=== PATIENT | female | born 1970 | race Caucasian/White ===

== ENCOUNTER 2016-06-13 13:53 | Inpatient (IN) | payer BC, OTHER ==
[~2016-06-13] VITALS: Ht 162.6 cm; Wt 63.5 kg
[2016-06-13 19:50] VITALS: BP 122/81
[2016-06-13 20:17] LABS: *URINE HCG, QUAL NEGATIVE (NEGATIVE)
[2016-06-13 20:34] LABS: *AMPHETAMINE, URINE NEGATIVE (NEGATIVE); *BARBITURATE, URINE NEGATIVE (NEGATIVE); *CANNABINOID, URINE NEGATIVE (NEGATIVE); *COCCAINE, URINE NEGATIVE (NEGATIVE); *OPIATE, URINE NEGATIVE (NEGATIVE); *PHENCYCLIDINE SCREEN,URINE NEGATIVE (NEGATIVE)
[2016-06-13] MEDS ORDERED: DICYCLOMINE HCL 20 MG TABLET PO PRN (20:45)
[2016-06-13] MEDS ORDERED: MAG HYDROX/AL HYDROX/SIMETH 30 ML LIQUID UDC PO PRN (20:45)
[2016-06-13] MEDS ORDERED: BUPRENORPHINE HCL 2 MG TAB.SUBL SL PRN (20:45)
[2016-06-13] MEDS ORDERED: MAGNESIUM HYDROXIDE 30 ML LIQUID UDC PO PRN (20:45)
[2016-06-13] MEDS ORDERED: DIAZEPAM 10 MG TABLET PO PRN ×2 (20:45)
[2016-06-13] MEDS ORDERED: PROMETHAZINE HCL 25 MG/1 ML VIAL IM PRN (20:45)
[2016-06-13] MEDS ORDERED: METHOCARBAMOL 750 MG TABLET PO PRN (20:45)
[2016-06-13] MEDS ORDERED: MIRALAX 17 GM POWD.PACK PO PRN (20:45)
[2016-06-13] MEDS ORDERED: LOPERAMIDE HCL 2 MG CAPSULE PO PRN ×2 (20:45)
[2016-06-13] MEDS ORDERED: LORAZEPAM 2 MG/1 ML VIAL IM PRN (20:45)
[2016-06-13] MEDS ORDERED: IBUPROFEN 400 MG TABLET PO PRN (20:45)
[2016-06-13] MEDS ORDERED: DIAZEPAM 5 MG TABLET PO PRN (20:45)
[2016-06-13 21:23] LABS: BASOPHILS # (AUTO) 0.1 K/uL (0.0-0.2); BASOPHILS % (AUTO) 1.4 % (0.0-2.0); EOSINOPHILS # (AUTO) 0.2 K/uL (0.0-0.7); EOSINOPHILS % (AUTO) 2.3 % (0.0-7.0); HEMOGLOBIN 10.3 g/dL (12.0-16.0); LYMPHOCYTES # (AUTO) 3.8 K/uL (0.8-4.8); MEAN CORPUSCULAR HGB CONC 32 g/dL (32.0-37.0); MEAN CORPUSCULAR VOLUME 71.6 fL (81.0-99.0); MONOCYTES # (AUTO) 0.4 K/uL (0.1-1.30); MONOCYTES % (AUTO) 4.7 % (0.0-11.0); NEUTROPHILS % (AUTO) 39.6 % (38.5-71.5); PLATELET COUNT (AUTO) 346 K/uL (150-450); RED BLOOD CELL COUNT(AUTO) 4.47 MIL/uL (4.20-5.40); RED CELL DISTRIBUTION WIDTH 23.6 % (11.5-14.5); WHITE BLOOD COUNT (AUTO) 7.5 K/uL (4.0-11.2)
[2016-06-13 21:46] LABS: ALBUMIN 3.7 g/dL (3.4-5.0); BILIRUBIN,TOTAL 0.2 mg/dL (0.2-1.0); CALCIUM 8.2 mg/dL (8.5-10.1); CREATININE 0.9 mg/dL (0.6-1.3); MAGNESIUM 1.9 mg/dL (1.8-2.4); POTASSIUM 3.9 mmol/L (3.5-5.1); TOTAL PROTEIN, SERUM 7.4 g/dL (6.4-8.2)
[2016-06-13 21:53] LABS: THYROID STIMULATING HORMONE 1.432 mIU/mL (0.358-3.740)
[2016-06-13 21:56] LABS: HIV-1 p24 ANTIGEN NON REACTIVE (NONREACTIVE); HIV-1/2 ANTIBODY NON REACTIVE (NONREACTIVE)
[2016-06-13 22:22] LABS: ANISOCYTOSIS 2+; BAND % (MANUAL) 1 % (0-10); EOSINOPHILS % (MANUAL) 1 % (0-8); HYPOCHROMASIA 1+; LYMPHOCYTES % (MANUAL) 53 % (20-40); MONOCYTES % (MANUAL) 5 % (2-10); NEUTROPHILS % (MANUAL) 40 % (42-75); PLATELET ESTIMATE ADEQUATE
[2016-06-13 22:45] VITALS: BP 125/85
[2016-06-13] MEDS: ONDANSETRON ODT 4 MG TAB.RAPDIS SL PRN (22:46)
[2016-06-14] VITALS (7 sets, daily range): BP systolic 98–115; BP diastolic 68–82
[2016-06-14] MEDS: CLONIDINE HCL 0.1 MG TABLET PO PRN (00:57)
[2016-06-14] MEDS ORDERED: [UNRECOGNIZED DRUG - CODE] BC (02:23)
[2016-06-14] MEDS: HYDROXYZINE PAMOATE 25 MG CAPSULE PO PRN (03:56)
[2016-06-14] MEDS ORDERED: TUBERCULIN,PURIF.PROT.DERIV. 5 TU/0.1 ML TEST ID ONE (09:00)
[2016-06-14] MEDS: MULTIVITAMINS,THERAPEUTIC TABLET PO SCH (09:12)
[2016-06-14] MEDS ORDERED: ONDANSETRON 4 MG/2 ML VIAL IV PRN (09:30)
[2016-06-14] MEDS: PAROXETINE HCL 20 MG TABLET PO SCH (09:37)
[2016-06-14] MEDS: ACETAMINOPHEN 325 MG TABLET PO PRN (09:37)
[2016-06-14] MEDS: ONDANSETRON ODT 4 MG TAB.RAPDIS SL PRN (09:38)
[2016-06-14] MEDS ORDERED: LORAZEPAM 1 MG TABLET PO PRN ×2 (10:00)
[2016-06-14] MEDS: LORAZEPAM 1 MG TABLET PO SCH ×3 (12:04→21:53)
[2016-06-14] MEDS ORDERED: GABAPENTIN 300 MG CAPSULE PO SCH (15:00)
[2016-06-14] MEDS ORDERED: BUPRENORPHINE HCL 2 MG TAB.SUBL SL SCH (17:00)
[2016-06-14] MEDS ORDERED: PATIENT MAY USE OWN MED- MD OK PO SCH (17:00)
[2016-06-14] MEDS ORDERED: LIDOCAINE 5% PATCH TD SCH (19:00)
[2016-06-14] MEDS: BUPRENORPHINE HCL 2 MG TAB.SUBL SL SCH (19:53)
[2016-06-14] MEDS: GABAPENTIN 300 MG CAPSULE PO SCH (21:54)
[2016-06-14] MEDS: diphenhydrAMINE 50 MG CAPSULE PO PRN (21:54)
[2016-06-15] VITALS: BP 119/88
[2016-06-15 04:00] VITALS: BP 100/73
[2016-06-15 06:06] LABS: HCV AB 0.1 s/co ratio (0.0-0.9); HEPATITIS B CORE AB, IgM Negative (Negative); HEPATITIS B SURFACE AG Negative (Negative)
[2016-06-15 08:00] VITALS: BP 116/88
[2016-06-15] MEDS: BUPRENORPHINE HCL 2 MG TAB.SUBL SL SCH (08:50)
[2016-06-15] MEDS: PAROXETINE HCL 20 MG TABLET PO SCH (08:50)
[2016-06-15] MEDS: MULTIVITAMINS,THERAPEUTIC TABLET PO SCH (08:50)
[2016-06-15] MEDS: GABAPENTIN 300 MG CAPSULE PO SCH ×3 (08:50→21:43)
[2016-06-15] MEDS: LORAZEPAM 1 MG TABLET PO SCH ×3 (08:50→21:44)
[2016-06-15 12:00] VITALS: BP 110/67
[2016-06-15] MEDS: ACETAMINOPHEN 325 MG TABLET PO PRN (14:56)
[2016-06-15 16:00] VITALS: BP 113/79
[2016-06-15] MEDS ORDERED: IBUPROFEN 400 MG TABLET PO PRN (17:45)
[2016-06-15] MEDS: LIDOCAINE 5% PATCH TD SCH (18:23)
[2016-06-15 20:00] VITALS: BP 126/83
[2016-06-15] MEDS: KETOROLAC TROMETHAMINE 30 MG INJ IM PRN (21:44)
[2016-06-16] VITALS: BP 106/77
[2016-06-16 04:00] VITALS: BP 99/72
[2016-06-16 08:00] VITALS: BP 120/68
[2016-06-16] MEDS: GABAPENTIN 300 MG CAPSULE PO SCH ×3 (09:24→21:12)
[2016-06-16] MEDS: LORAZEPAM 1 MG TABLET PO SCH ×4 (09:24→21:12)
[2016-06-16] MEDS: PAROXETINE HCL 20 MG TABLET PO SCH (09:24)
[2016-06-16] MEDS: BUPRENORPHINE HCL 2 MG TAB.SUBL SL SCH (09:25)
[2016-06-16] MEDS: MULTIVITAMINS,THERAPEUTIC TABLET PO SCH (09:25)
[2016-06-16] MEDS: KETOROLAC TROMETHAMINE 30 MG INJ IM PRN ×3 (09:31→22:27)
[2016-06-16 13:00] VITALS: BP 130/90
[2016-06-16 16:46] VITALS: BP 130/80
[2016-06-16 20:00] VITALS: BP 134/85
[2016-06-16] MEDS: FAMOTIDINE 20 MG TABLET PO SCH (21:12)
[2016-06-16] MEDS: LIDOCAINE 5% PATCH TD SCH (21:13)
[2016-06-16] MEDS ORDERED: KETOROLAC TROMETHAMINE 30 MG INJ ONE (22:03)
[2016-06-17] VITALS: BP 113/77
[2016-06-17] MEDS: PAROXETINE HCL 20 MG TABLET PO SCH (08:44)
[2016-06-17] MEDS: FAMOTIDINE 20 MG TABLET PO SCH ×2 (08:44→21:20)
[2016-06-17] MEDS: GABAPENTIN 300 MG CAPSULE PO SCH ×3 (08:44→21:19)
[2016-06-17] MEDS: MULTIVITAMINS,THERAPEUTIC TABLET PO SCH (08:45)
[2016-06-17] MEDS: LORAZEPAM 1 MG TABLET PO SCH ×3 (08:45→21:19)
[2016-06-17] MEDS: BUPRENORPHINE HCL 2 MG TAB.SUBL SL SCH (08:45)
[2016-06-17] MEDS: KETOROLAC TROMETHAMINE 30 MG INJ IM PRN ×2 (08:50→17:04)
[2016-06-17 10:10] VITALS: BP 113/77
[2016-06-17 13:32] VITALS: BP 113/80
[2016-06-17 18:17] VITALS: BP 113/80
[2016-06-17 20:00] VITALS: BP 117/83
[2016-06-17] MEDS: LIDOCAINE 5% PATCH TD SCH (21:20)
[2016-06-18 08:00] VITALS: BP 139/89
[2016-06-18] MEDS: MULTIVITAMINS,THERAPEUTIC TABLET PO SCH (08:30)
[2016-06-18] MEDS: BUPRENORPHINE HCL 2 MG TAB.SUBL SL SCH (08:31)
[2016-06-18] MEDS: LORAZEPAM 1 MG TABLET PO SCH ×2 (08:31→20:57)
[2016-06-18] MEDS: GABAPENTIN 300 MG CAPSULE PO SCH ×3 (08:31→20:57)
[2016-06-18] MEDS: FAMOTIDINE 20 MG TABLET PO SCH ×2 (08:31→20:57)
[2016-06-18] MEDS: PAROXETINE HCL 20 MG TABLET PO SCH (08:31)
[2016-06-18] MEDS: CLONIDINE HCL 0.1 MG TABLET PO PRN (09:31)
[2016-06-18 12:00] VITALS: BP 120/84
[2016-06-18] MEDS: HYDROXYZINE PAMOATE 25 MG CAPSULE PO PRN ×2 (12:56→22:37)
[2016-06-18 16:00] VITALS: BP 111/75
[2016-06-18 20:00] VITALS: BP 115/87
[2016-06-18] MEDS: LIDOCAINE 5% PATCH TD SCH (20:56)
[2016-06-18] MEDS: KETOROLAC TROMETHAMINE 30 MG INJ IM PRN (22:37)
[2016-06-19 08:00] VITALS: BP 105/63
[2016-06-19] MEDS: GABAPENTIN 300 MG CAPSULE PO SCH ×3 (09:08→20:13)
[2016-06-19] MEDS: MULTIVITAMINS,THERAPEUTIC TABLET PO SCH (09:08)
[2016-06-19] MEDS: PAROXETINE HCL 20 MG TABLET PO SCH (09:09)
[2016-06-19] MEDS: FAMOTIDINE 20 MG TABLET PO SCH ×2 (09:09→20:13)
[2016-06-19] MEDS: BUPRENORPHINE HCL 2 MG TAB.SUBL SL SCH (09:09)
[2016-06-19] MEDS: HYDROXYZINE PAMOATE 25 MG CAPSULE PO PRN (11:49)
[2016-06-19] MEDS: KETOROLAC TROMETHAMINE 30 MG INJ IM PRN (11:51)
[2016-06-19 12:00] VITALS: BP 127/93
[2016-06-19] MEDS: BACLOFEN 20 MG TABLET PO SCH ×2 (14:59→20:12)
[2016-06-19] MEDS ORDERED: PANTOPRAZOLE SODIUM 40 MG TABLET.DR PO ONE (15:00)
[2016-06-19] MEDS: NAPROXEN 250 MG TABLET PO SCH ×2 (15:34→20:12)
[2016-06-19 16:00] VITALS: BP 108/84
[2016-06-19 18:31] LABS: *AMPHETAMINE, URINE NEGATIVE (NEGATIVE); *BARBITURATE, URINE NEGATIVE (NEGATIVE); *CANNABINOID, URINE NEGATIVE (NEGATIVE); *COCCAINE, URINE NEGATIVE (NEGATIVE); *OPIATE, URINE NEGATIVE (NEGATIVE); *PHENCYCLIDINE SCREEN,URINE NEGATIVE (NEGATIVE)
[2016-06-19 20:00] VITALS: BP 129/79
[2016-06-19] MEDS: LIDOCAINE 5% PATCH TD SCH (20:12)
[2016-06-19] MEDS: diphenhydrAMINE 50 MG CAPSULE PO PRN (22:46)
[2016-06-20] VITALS: BP 114/76
[2016-06-20 04:00] VITALS: BP 127/86
[2016-06-20] MEDS ORDERED: PANTOPRAZOLE SODIUM 40 MG TABLET.DR PO SCH (07:00)
[2016-06-20] MEDS ORDERED: Baclofen PO (08:51)
[2016-06-20] MEDS ORDERED: Gabapentin PO ×2 (08:51)
[2016-06-20] MEDS ORDERED: DICY20TA28 PO (08:51)
[2016-06-20] MEDS ORDERED: HYDR-3895 PO (08:51)
[2016-06-20] MEDS ORDERED: PANT40TA2 PO (08:51)
[2016-06-20] MEDS ORDERED: LIDO30AD10 TD (08:51)
[2016-06-20] MEDS ORDERED: Acetaminophen PO (08:51)
[2016-06-20] MEDS ORDERED: Naproxen PO (08:51)
[2016-06-20] MEDS ORDERED: Paroxetine Hcl PO (08:51)
[2016-06-20 08:58] VITALS: BP 158/82
[2016-06-20] MEDS: BUPRENORPHINE HCL 2 MG TAB.SUBL SL SCH (09:00)
[2016-06-20] MEDS ORDERED: GABAPENTIN 300 MG CAPSULE PO SCH ×2 (09:00→21:00)
[2016-06-20] MEDS: NAPROXEN 250 MG TABLET PO SCH (09:04)
[2016-06-20] MEDS: BACLOFEN 20 MG TABLET PO SCH (09:04)
[2016-06-20] MEDS: PAROXETINE HCL 20 MG TABLET PO SCH (09:04)
[2016-06-20] MEDS: MULTIVITAMINS,THERAPEUTIC TABLET PO SCH (09:04)
[2016-06-20 15:11] LABS: *BENZODIAZEPINES Negative (Cutoff=300)
== END 2016-06-20 10:00 | disposition home or self-care (01) | DRG 895 ==
LOC: SRC 18:53
PROVIDERS: ADMIT Internal Medicine; ATTEND Internal Medicine
PROC: HZ2ZZZZ Detoxification Services for Substance Abuse Treatment (ICD-10-PCS; principal; 2016-06-13)
PROC: HZ31ZZZ Individual Counseling for Substance Abuse Treatment, Behavioral (ICD-10-PCS; 2016-06-14)
PROC: HZ41ZZZ Group Counseling for Substance Abuse Treatment, Behavioral (ICD-10-PCS; 2016-06-16)
DX: F10.230 Alcohol dependence with withdrawal, uncomplicated (principal); F11.288 Opioid dependence with other opioid-induced disorder; K70.10 Alcoholic hepatitis without ascites; Y90.7 Blood alcohol level of 200-239 mg/100 ml; T14.90 Injury, unspecified; G89.4 Chronic pain syndrome; V89.2XXS Person injured in unspecified motor-vehicle accident, traffic, sequela; M43.26 Fusion of spine, lumbar region; D50.9 Iron deficiency anemia, unspecified; F17.210 Nicotine dependence, cigarettes, uncomplicated; G57.92 Unspecified mononeuropathy of left lower limb; F41.1 Generalized anxiety disorder; Z98.1 Arthrodesis status; T81.9XXD Unspecified complication of procedure, subsequent encounter; Z79.899 Other long term (current) drug therapy; Z79.891 Long term (current) use of opiate analgesic
CPT/HCPCS: 36415; 70030-TC; 71010; 80307; 80346; 83690; 83735; 84443; 84703; 85025; 86580; 86592; 86705; 86803; 87340; 87806; A4663; G6040-TC; J1885; Q0162; Q0163

== ENCOUNTER 2016-07-04 14:53 | Inpatient (IN) | payer BC, OTHER ==
[~2016-07-04] VITALS: Ht 162.6 cm; Wt 65.8 kg
[~2016-07-04 14:53] MED LIST: Acetaminophen PO; Baclofen PO; DICY20TA28 PO; Gabapentin PO; HYDR-3895 PO; LIDO30AD10 TD; Naproxen PO; PANT40TA2 PO; Paroxetine Hcl PO; [UNRECOGNIZED DRUG - CODE] BC
--- NOTE | 2016-07-06 19:00 | NUR ---
pre-assessment note: assessed patient in intake pt is very unsteady alert x2 appears flushed and intoxicated, placed patient in wheelchair and 1:1. pt with no know allergies. pt is alert and oriented. pt states she takes norco 10/325 mg/ twice a day and subutex unknown dose at this time. pt states she also drinks 2 1/5th of a bottle. pt has hx of spinal surgery of L 1-5 (fusion). pts V/S 126/83, 93, 98.6 and 98%. no pain at this time. pt was in [facility] ER for 5 hrs
--- NOTE | 2016-07-06 19:30 | NUR ---
ADMISSION NOTE: Patient is a 42 y.o female admitted at [facility] at approximately 1855pm of 06/06/16 for medically supervised withdrawal from ETOH & Opiates. Patient came in a wheelchair d/t unsteady gait. Patient was placed on 1:1 observation for safety. Body search done and skin check performed in Room 303, no contraband found. Skin noted to be intact. Pt is 5'4" tall and weighs 145 lbs in a standing scale. Pt is cooperative during assessment. Patient is oriented to floor unit and room. Patient follows a regular diet at home with no known food and drug allergies. Pt wishes to be full Code. Patient is alert & oriented to name, place & situation. Speech is slurred but audible. Patient appears anxious but cooperative during interview. No shortness of breath noted. Respiration even & unlabored. Abdomen soft & non-distended. Bowel sounds active in all four quadrants. Nausea noted with no episode of vomiting. Patient complains of 8/10 body aches, mild headache, sweating , chills & anxiety. Bilateral hand tremors noted. COWS 11 CIWA 9 noted. Vitals upon admission: B/P 126/83/81, MN 93, Temp 98.6, RR 16, O2Sat 98%. Patient noted with past medical history of Anxiety, Spinal fusion(2012), Gastric Bypass( 20 yrs ago), Kidney Failure (2015), UTI, & Iron deficiency anemia. No history of suicide in the past. Pt currently denies SI/HI. Pt was able to provide urine sample for drug screen upon admission and is voiding clear yellow urine with no problems. Substance use: 1. ETOH- Pt has been drinking since she was 26 years old. Pt drinks 2 bottles of 750ml of Vodka daily for the past 17 days. Last drink 2 bottles of 750ml of vodka on the day of admission 07/06/16 at 1 pm. 2. [place]- Pt started taking prescribed [place] 10/325 TID(30mg/daily) for 4 years for her chronic back pain. Pt has been taking 30mg daily straight for 17 days. Last use was 30mg 2 days ago 07/04/16. 3. Belbuca- Pt has been taking it as prescribed for Opiate maintenance for 2 months. Pt is taking 300mcg BID( 600mcg daily). Last use was 600mcg 2 days ago 07/04/16. Treatment History: -[facility] for 7 days (June 13-) -[facility] in [place] for 7 days 05/14/2016 -Pt cannot recall then name of the other treatment facilities. Per pt, she has been to over 10 facilities. Patient was recently hospitalized here at [facility] last month from June 13- and was discharged to [facility] where she was not allowed to take here prescribed medications and got frustrated. Patientleft the facility immediately and relapsed. Patient denies being hospitalized in the last 30 days. Patient reports his longest period of sobriety was for 3.5 years from 2008 to 2012. Patient reports symptoms when he does not use as anxiety, shaking, nausea & headache, body aches, sweating, chills, & restless legs. Patient smokes 20 cigarettes daily. Patient refused pneumonia vaccines, educated patient risk & benefits but still refused. Patient does not have a PCP. Urine drug screen came back positive for Opiates and Benzodiazepines. Alcohol level is 0.29. Fall & Seizure precautions are in place. All needs attended & met. Safety precautions are in place. Bed locked in lowest position. Both side rails padded & up. Call light within pt's reach. Will continue to monitor. Dr. Watson seen pt. Awaiting for admission order. Will continue to monitor patient.
[2016-07-06 20:02] LABS: *AMPHETAMINE, URINE NEGATIVE (NEGATIVE); *BARBITURATE, URINE NEGATIVE (NEGATIVE); *CANNABINOID, URINE NEGATIVE (NEGATIVE); *COCCAINE, URINE NEGATIVE (NEGATIVE); *OPIATE, URINE POSITIVE (NEGATIVE); *PHENCYCLIDINE SCREEN,URINE NEGATIVE (NEGATIVE)
[2016-07-06 20:08] LABS: *URINE HCG, QUAL NEGATIVE (NEGATIVE)
[2016-07-06] MEDS ORDERED: THIAMINE HCL 200 MG/2 ML VIAL IM ONE (20:30)
[2016-07-06] MEDS ORDERED: LORAZEPAM 2 MG/1 ML VIAL IM PRN (20:30)
[2016-07-06] MEDS ORDERED: HYDROXYZINE PAMOATE 25 MG CAPSULE PO PRN (20:30)
[2016-07-06] MEDS ORDERED: MAG HYDROX/AL HYDROX/SIMETH 30 ML LIQUID UDC PO PRN (20:30)
[2016-07-06] MEDS ORDERED: MIRALAX 17 GM POWD.PACK PO PRN (20:30)
[2016-07-06] MEDS ORDERED: LORAZEPAM 1 MG TABLET PO PRN (20:30)
[2016-07-06] MEDS ORDERED: diphenhydrAMINE 50 MG CAPSULE PO PRN (20:30)
[2016-07-06] MEDS ORDERED: NAPROXEN 500 MG TABLET PO PRN (20:30)
[2016-07-06] MEDS ORDERED: IBUPROFEN 600 MG TABLET PO PRN (20:30)
[2016-07-06] MEDS ORDERED: LOPERAMIDE HCL 2 MG CAPSULE PO PRN ×2 (20:30)
[2016-07-06] MEDS ORDERED: DICYCLOMINE HCL 20 MG TABLET PO PRN (20:30)
[2016-07-06] MEDS ORDERED: GABAPENTIN 300 MG CAPSULE PO SCH (21:00)
[2016-07-06 21:09] LABS: BASOPHILS # (AUTO) 0.1 K/uL (0.0-8.0); EOSINOPHILS # (AUTO) 0.1 K/uL (0.0-0.7); EOSINOPHILS % (AUTO) 0.5 % (0.0-7.0); HEMATOCRIT 37.2 % (37-47); HEMOGLOBIN 11.6 G/DL (12.0-16.0); LYMPHOCYTES # (AUTO) 3.2 K/uL (20.0-40.0); LYMPHOCYTES % (AUTO) 26.8 % (20.5-51.5); MEAN CORPUSCULAR HEMOGLOBIN 22.1 UUG (27.0-31.0); MEAN CORPUSCULAR HGB CONC 31 g/dL (32.0-37.0); MEAN CORPUSCULAR VOLUME 70.9 FL (81.0-99.0); MONOCYTES # (AUTO) 0.2 K/uL (2.0-10.0); NEUTROPHILS # (AUTO) 8.2 K/uL (1.8-8.9); NEUTROPHILS % (AUTO) 69.7 % (38.5-71.5); PLATELET COUNT (AUTO) 303 K/UL (150-450); RED BLOOD CELL COUNT(AUTO) 5.24 MIL/UL (4.2-5.4); RED CELL DISTRIBUTION WIDTH 21.8 % (11.5-14.5); WHITE BLOOD COUNT (AUTO) 11.8 K/UL (4.0-11.2)
[2016-07-06 21:24] LABS: HYPOCHROMASIA 2+
[2016-07-06 21:25] LABS: ANISOCYTOSIS 3+; OVALOCYTES FEW
[2016-07-06 21:29] LABS: ALBUMIN 4.5 g/dL (3.4-5.0); BILIRUBIN,TOTAL 0.2 mg/dL (0.2-1.0); CALCIUM 8.4 mg/dL (8.5-10.1); CREATININE 0.8 mg/dL (0.6-1.3); MAGNESIUM 1.8 mg/dL (1.8-2.4); POTASSIUM 3.5 mmol/L (3.5-5.1); THYROID STIMULATING HORMONE 0.247 mIU/mL (0.358-3.740); TOTAL PROTEIN, SERUM 8.5 g/dL (6.4-8.2)
[2016-07-06 21:31] LABS: HIV-1 p24 ANTIGEN NON REACTIVE (NONREACTIVE); HIV-1/2 ANTIBODY NON REACTIVE (NONREACTIVE)
[2016-07-06] MEDS ORDERED: IV NS 1000 ML 1,000 ML IV ONE (21:45)
[2016-07-06] MEDS: ONDANSETRON ODT 4 MG TAB.RAPDIS SL PRN (21:55)
[2016-07-06] MEDS: BUPRENORPHINE HCL 2 MG TAB.SUBL SL SCH (21:55)
--- NOTE | 2016-07-06 21:55 | NUR ---
PRN Administration Patient complains of nausea, insomnia & anxiety. Patient with no episode of vomiting noted. Patient noted to be restless and anxious in bed. PRN Zofran, benadryl & Vistaril administered as ordered. Will continue to monitor.
--- NOTE | 2016-07-06 22:55 | NUR ---
PRN Reasessment Patient still awake at this time. Pt verbalized relief from nausea & improved anxiety noted. Safety precautions are in place. On 1:1 for precaution. Will continue to monitor.
[2016-07-06] MEDS: LORAZEPAM 1 MG TABLET PO PRN (23:31)
--- NOTE | 2016-07-06 23:31 | NUR ---
PRN Administration Patient noted with complains of sweating, anxiety & mild headache. Pateint appears anxious and restless. Bilateral hand tremors noted. CIWA 9 noted. Vitals WNL. PRN Ativan 1mg administered as ordered. Will reassess in 1 hour for effectiveness of medication. Safety precautions are in place. Will continue to monitor.
--- NOTE | 2016-07-06 23:34 | NUR ---
IV insertion Pt had peripheral IV 22G inserted on Left AC. Insertion successful with good blood return. Flushes easily with no complaints of discomfort from patient. Tegaderm applied. Pt in stable condition.
[2016-07-07] VITALS: BP 113/81
--- NOTE | 2016-07-07 00:31 | NUR ---
PRN Reassessment Patient asleep in bed and appears comfortable. No s/s of distress noted. No facial grimacing noted. On 1:1 for safety. Safety precautions are in place. Will continue to monitor patient.
[2016-07-07 06:06] VITALS: BP 128/75
[2016-07-07] MEDS: ACETAMINOPHEN 325 MG TABLET PO PRN ×2 (06:17→20:52)
[2016-07-07] MEDS: ONDANSETRON ODT 4 MG TAB.RAPDIS SL PRN ×3 (06:17→20:53)
[2016-07-07] MEDS: PANTOPRAZOLE SODIUM 40 MG TABLET.DR PO SCH (06:17)
--- NOTE | 2016-07-07 06:17 | NUR ---
PRN Administration Patient complains of shaking, mild headache, anxiety and nausea. No episode of vomiting noted. Bilateral hand tremors noted. CIWA 9 noted. Vitals WNL. PRN Ativan, Zofran & Tylenol administered as oredered. safety precautions are in place. Will continue to monitor patient.
[2016-07-07] MEDS: LORAZEPAM 1 MG TABLET PO PRN (06:18)
--- NOTE | 2016-07-07 07:17 | NUR ---
PRN Reassessment Pateint asleep in bed at this time and appears comfortable. No shortness of breath noted. Respiration even & unlabored. safety precautions are in place. Will continue to monitor.
--- NOTE | 2016-07-07 07:20 | NUR ---
Start of shift note Pt was admitted for ETOH and opiate dependence. Pt has a PMHx of spinal fusion surgery, gastric bypass, anxiety, kidney failure, UTI and blood transfusions. Pt is going to start on a 5 day ativan taper and a modified subutex taper at 0900. Pt has IVF infusing to Left AC, pt is tolerating well. Pt states that she would like some pain medication with her morning medication for her body aches. Will administer them with her 0900 meds. All other needs addressed at this time. Will continue to monitor pt. Bed is locked in a low position, side rails up x 2.
--- NOTE | 2016-07-07 07:30 | NUR ---
End of Shift Note: Patient is a 45 y/o female admitted last night for Opiate and ETOH dependence. Patient is in stable condition. Vitals remains WNL. Last COWS 9 CIWA 10. Pt was given PRN Zofran x2, benadryl, Vistaril, Ativan 1mg x2, & Tylenol. Pt is having withdrawals but relieved after medications were given. Pt with IV access on left AC with IV fluids running @ 125 cc/hr. Pt was took off on 1:1. Safety precautions are in place. Pt consumed 710ml of fluids. Voided 2x with no bowel movement. All needs attended & met. Safetyu precautions are in place. Will endorse pt to day shift nurse.
[2016-07-07 08:00] VITALS: BP 108/63
--- NOTE | 2016-07-07 08:35 | NUR ---
PRN administration Pt c/o pain of 8/10 in her back and muscle spasms. Administered PRN baclofen and naproxen. Will continue to monitor pt. All other needs addressed at this time.
[2016-07-07] MEDS: THIAMINE HCL 100 MG TABLET PO SCH (08:36)
[2016-07-07] MEDS: BUPRENORPHINE HCL 2 MG TAB.SUBL SL SCH ×2 (08:36→20:53)
[2016-07-07] MEDS: FOLIC ACID 1 MG TABLET PO SCH (08:36)
[2016-07-07] MEDS: BACLOFEN 20 MG TABLET PO PRN ×2 (08:37→16:05)
[2016-07-07] MEDS: LIDOCAINE 5% PATCH TD SCH (08:37)
[2016-07-07] MEDS: LORAZEPAM 1 MG TABLET PO SCH ×4 (08:37→20:52)
[2016-07-07] MEDS: IV NS 1000 ML 1,000 ML IV PRN ×2 (08:38→23:45)
[2016-07-07] MEDS: MULTIVITAMINS,THERAPEUTIC TABLET PO SCH (08:38)
--- NOTE | 2016-07-07 08:45 | NUR ---
MD communication Pt has a CIWA of 19. Notified Dr Christianson, NNO. Will continue to monitor pt and administer PRN medication as necessary. All other needs addressed at this time.
[2016-07-07] MEDS ORDERED: GABAPENTIN 300 MG CAPSULE PO SCH (09:00)
[2016-07-07] MEDS ORDERED: TUBERCULIN,PURIF.PROT.DERIV. 5 TU/0.1 ML TEST ID ONE (09:00)
[2016-07-07 09:29] LABS: ALBUMIN 3.9 g/dL (3.4-5.0); BILIRUBIN,DIRECT 0.1 mg/dL (0.0-0.2); BILIRUBIN,TOTAL 0.5 mg/dL (0.2-1.0); CALCIUM 8.2 mg/dL (8.5-10.1); CREATININE 0.9 mg/dL (0.6-1.3); MAGNESIUM 1.5 mg/dL (1.8-2.4); PHOSPHOROUS 3.6 mg/dL (2.5-4.9); POTASSIUM 3.9 mmol/L (3.5-5.1); TOTAL PROTEIN, SERUM 7.2 g/dL (6.4-8.2)
[2016-07-07 09:35] LABS: BASOPHILS % (AUTO) 0.4 % (0.0-2.0); EOSINOPHILS # (AUTO) 0.2 K/uL (0.0-0.7); EOSINOPHILS % (AUTO) 1.8 % (0.0-7.0); HEMATOCRIT 30.4 % (37-47); HEMOGLOBIN 9.7 G/DL (12.0-16.0); LYMPHOCYTES # (AUTO) 2.9 K/uL (20.0-40.0); LYMPHOCYTES % (AUTO) 30.4 % (20.5-51.5); MEAN CORPUSCULAR HEMOGLOBIN 22.9 UUG (27.0-31.0); MEAN CORPUSCULAR HGB CONC 32 g/dL (32.0-37.0); MEAN CORPUSCULAR VOLUME 71.6 FL (81.0-99.0); MONOCYTES # (AUTO) 0.6 K/uL (2.0-10.0); MONOCYTES % (AUTO) 5.9 % (0.0-11.0); NEUTROPHILS # (AUTO) 5.8 K/uL (1.8-8.9); NEUTROPHILS % (AUTO) 61.5 % (38.5-71.5); PLATELET COUNT (AUTO) 287 K/UL (150-450); RED BLOOD CELL COUNT(AUTO) 4.25 MIL/UL (4.2-5.4); RED CELL DISTRIBUTION WIDTH 21.4 % (11.5-14.5); WHITE BLOOD COUNT (AUTO) 9.5 K/UL (4.0-11.2)
--- NOTE | 2016-07-07 09:35 | NUR ---
Reassessment Pt states that her pain level has decreased to a 5/10, which is comfortable for her. All other needs addressed, pt is attempting to participate in activities and is ambulating around the unit.
[2016-07-07 09:44] LABS: LACTIC ACID 2.2 mmol/L (0.4-2.0)
--- NOTE | 2016-07-07 09:49 | NUR ---
LAB Lactic acid=2.[address] Christianson notified with new order for Lactic acid lab in 4 hours, noted and carried out.
[2016-07-07] MEDS ORDERED: MAGNESIUM OXIDE 400 MG TABLET PO ONE (10:15)
[2016-07-07] MEDS ORDERED: IV NS 1000 ML 1,000 ML IV ONE (10:15)
--- NOTE | 2016-07-07 10:19 | NUR ---
PRN administration Pt has a CIWA of 17, Dr Watson aware, administered PRN ativan 2mg PO per MD order. Will continue to monitor pt.
[2016-07-07 10:23] LABS: FOLIC ACID 20.9 NG/ML (8.6-58.9)
--- NOTE | 2016-07-07 11:19 | NUR ---
Reassessment Pt is comfortably sleeping in her bed. IVF infusing, pt noted to have drank one bottle of water. PO fluids will continued to be encouraged throughout the shift. All needs addressed at this time.
[2016-07-07 12:00] VITALS: BP 130/80
[2016-07-07 12:16] LABS: *BILIRUBIN,URIN NEGATIVE (NEGATIVE); *BLOOD, URINE Trace-lysed (NEGATIVE); *CLARITY,URINE CLEAR (CLEAR); *COLOR,URINE YELLOW (YELLOW); *KETONES,URINE 1+ (NEGATIVE); *PROTEIN,URINE TRACE (NEGATIVE); *UROBILINOGEN,URINE 0.2 E.U./dl (NORMAL); LEUKOCYTE ESTERASE ,URINE NEGATIVE (NEGATIVE); NITRITE, URINE NEGATIVE (NEGATIVE); UGLUCOSE NEGATIVE (NEGATIVE)
[2016-07-07 12:35] LABS: BACTERIA,URINE FEW /HPF (NONE SEEN); RBC,URINE 0-3 /HPF (0-3); WBC,URINE 0-3 /HPF (0-3)
[2016-07-07 12:36] LABS: SQUAMOUS EPITHELIAL CELL,UR FEW /HPF (NONE SEEN)
--- NOTE | 2016-07-07 13:41 | NUR ---
PRN administration Pt c/o nausea, administered PRN zofran. Will continue to monitor pt.
[2016-07-07] MEDS ORDERED: LORAZEPAM 1 MG TABLET PO PRN ×2 (13:45)
[2016-07-07] MEDS: PAROXETINE HCL 20 MG TABLET PO SCH (13:51)
--- NOTE | 2016-07-07 13:51 | NUR ---
Reassessment Pt states that the zofran was effective in reducing her nausea. Pt states that she is comfortable now. Will continue to monitor pt.
[2016-07-07] MEDS: GABAPENTIN 300 MG CAPSULE PO SCH ×2 (15:35→20:54)
[2016-07-07 16:00] VITALS: BP 111/68
--- NOTE | 2016-07-07 16:05 | NUR ---
PRN administration Pt c/o pain 10/12 as generalized body aches and pain in her lower back, administered PRN baclofen per MD order. Will continue to monitor pt.
--- NOTE | 2016-07-07 17:05 | NUR ---
Reassessment Pt states that her pain level has decreased to a 4/10. Pt states that she feels comfortable at this time. Will continue to monitor pt. All other needs addressed at this time.
--- NOTE | 2016-07-07 19:12 | NUR ---
End of shift note. Pt was admitted for ETOH and opiate dependence. Pt has a PMHx of spinal fusion surgery, gastric bypass, anxiety, kidney failure, UTI and blood transfusions. Pt is on a 5 day ativan taper and a modified subutex taper at 0900. Pt is scheduled to have IVF infusing to Left AC, however pt is ambulating around the unit and participating in group outside of unit and unable to have IVF at this time. Next shift to follow up and restart IVF. Pt had a critically high lactic acid level during the shift, which resolved after administration of IVF and PO fluids. Pt required multiple PRN medications throughout the shift to manage her withdrawal s/s and chronic pain. Pt has no further complaints at this time. All needs addressed. Will endorse SBAR to oncoming shift.
--- NOTE | 2016-07-07 19:15 | NUR ---
Start of Shift Note: Patient is a 45 y/o male admitted on 07/06/16 for Opiate and ETOH dependence. Patient reported drinking 1500ml of Vodka daily for 2 weeks, prescribed [place] 30mg daily for 17 days and Belbuca 600mcg daily for 17 days. Patient with medical history of Anxiety, kidney failyre (2016), UTI, Blood transfusion d/t iron deficiency in 2016. Past medical surgery of Spinal fusion (2012), & Gastric Bypass (20 yrs ago). Patient is on a regular diet with no known food and drug allergies. Full Code status. Fall & Seizure precaution noted. Patient is on a 5-day Ativan taper and modified Subutex taper and tolerating well. Patient has 22 gauge peripheral IV access on her Left AC with running NS @ 125 cc/hr patent and flushes easily. No complains of discomfort at this time. Last COWS is 3 CIWA 1 noted. Patient was given PRN Miralax during day shift. Will continue to monitor for bowel movement. Patient is alert & oriented x4. No shortness of breath noted. Respiration even & unlabored. Abdomen soft & non-distended. Nausea noted with no episode of vomiting. Patient complains of sweating , 9/10 body aches & mild headache. Slight bilateral hand tremors noted. Patient denies hallucinations. Safety precautions are in place. Bed locked in lowest position. Both side rails up. Call light within pts reach. Will continue to monitor patient. Addendum: 07/07/16 at 2338 by TATE CANTU RN ERROR in PRN's. Pt was given PRN Baclofen x2, Naproxen, Zofran & Ativan during day shift.
[2016-07-07 20:00] VITALS: BP 117/76
--- NOTE | 2016-07-07 20:53 | NUR ---
PRN Administration Patient complains of mild headache and nausea. No episode of vomiting noted. Non-pharmacological interventions provided but not effective. PRN Tylenol and Zofran administered as ordered. Will continue to monitor
--- NOTE | 2016-07-07 21:53 | NUR ---
PRN Reassessment Patient verbalized relief from headache and improved nausea. Patient lying in bed and appears comfortable. No s/s of distress noted. Will continue to monitor patient.
--- NOTE | 2016-07-07 22:00 | NUR ---
IV insertion Pt's IV was noted to be leaking and pt is complaining of discomfort. IV discontinued. Pressure dressing applied. Reinstered new peripheral IV 22G on left hand. Insertion successful with good blood return. Flushes easily with no complaints of discomfort from patient. Tegaderm applied. Pt in stable condition.
[2016-07-08] VITALS: BP 107/78
[2016-07-08 04:00] VITALS: BP 126/58
--- NOTE | 2016-07-08 04:00 | NUR ---
IV pulled out Pt's IV on left hand accidentally pulled out. Minimal bleeding noted. Pressure dressing applied.
[2016-07-08] MEDS: BACLOFEN 20 MG TABLET PO PRN ×2 (05:25→23:34)
[2016-07-08] MEDS: ONDANSETRON ODT 4 MG TAB.RAPDIS SL PRN ×3 (05:25→21:37)
--- NOTE | 2016-07-08 05:25 | NUR ---
PRN Administration Patient complains of 8/10 body aches and nausea. No episode of vomiting noted. PRN Baclofen and Zofran administered as ordered. Will reassess in 1 hour for effectiveness of medication. Will continue to monitor patient.
--- NOTE | 2016-07-08 06:25 | NUR ---
PRN Reassessment Patient is asleep at this time and appears comfortable. No facial grimacing noted. Patient shows no s/s of distress. Safety precautions are in place. Will continue to monitor.
[2016-07-08] MEDS: PANTOPRAZOLE SODIUM 40 MG TABLET.DR PO SCH (06:40)
--- NOTE | 2016-07-08 07:00 | NUR ---
Start of Shift Endorsement received from nightshift nurse. Pt is a 45 y/o female admitted for alcohol and [place] dependence. PT has been placed on a 5 day Ativan taper. Pt is also on Subutex maintenance. PT is tolerating the taper and moderately withdrawing at this time AEB COWS 9, CIWA 5 at 0530. Pt slept 7 hours. Pt received PRN Zofran, Tylenol and Baclofen. Pt's IV has been discontinued until farther evaluation by Dr. Christianson. VS WNL, Full Code. Pt is in STABLE condition at this time. Remains compliant with medication and diet regimen. All needs have been met, All safety measures in place per hospital policy. Bed in lowest position, side rails up x2, call-light within reach. Will continue to monitor.
--- NOTE | 2016-07-08 07:25 | NUR ---
End of Shift Note: Patient is a 45 y/o male admitted on 07/06/16 for Opiate and ETOH dependence. Patient reported drinking 1500ml of Vodka daily for 2 weeks, prescribed [place] 30mg daily for 17 days and Belbuca 600mcg daily for 17 days. Patient with medical history of Anxiety, kidney failure (2016), UTI, Blood transfusion d/t iron deficiency in 2016. Past medical surgery of Spinal fusion (2012), & Gastric Bypass (20 yrs ago). Patient is on a regular diet with no known food and drug allergies. Full Code status. Fall & Seizure precaution noted. Patient is on a 5-day Ativan taper and modified Subutex taper and tolerating well. Last COWS 9 CIWA 5. Pt was given PRN Tylenol, Zofran 2x, & Baclofen during my shift and was effective. Patients IV got pulled out at the end of the shift. Attempted to reinsert but was unsuccessful. Pt remained stable and vitals remains WNL. Pt is compliant with therapeutic plan. Pt slept for a total of 7 hours. Pt consumed 796ml of fluids. Voided 2x with 1x bowel movement. All needs attended & met. Safety precautions are in place. Will endorse pt to day shift nurse.
[2016-07-08 08:00] VITALS: BP 99/65
[2016-07-08 08:29] LABS: BASOPHILS # (AUTO) 0.1 K/uL (0.0-8.0); BASOPHILS % (AUTO) 0.9 % (0.0-2.0); EOSINOPHILS # (AUTO) 0.3 K/uL (0.0-0.7); EOSINOPHILS % (AUTO) 2.6 % (0.0-7.0); HEMATOCRIT 29.8 % (37-47); HEMOGLOBIN 9.7 G/DL (12.0-16.0); LYMPHOCYTES % (AUTO) 29.8 % (20.5-51.5); MEAN CORPUSCULAR HEMOGLOBIN 22.9 UUG (27.0-31.0); MEAN CORPUSCULAR HGB CONC 33 g/dL (32.0-37.0); MEAN CORPUSCULAR VOLUME 70.2 FL (81.0-99.0); MONOCYTES # (AUTO) 0.7 K/uL (2.0-10.0); MONOCYTES % (AUTO) 6.7 % (0.0-11.0); NEUTROPHILS # (AUTO) 5.9 K/uL (1.8-8.9); PLATELET COUNT (AUTO) 271 K/UL (150-450); RED BLOOD CELL COUNT(AUTO) 4.25 MIL/UL (4.2-5.4); RED CELL DISTRIBUTION WIDTH 21.4 % (11.5-14.5)
[2016-07-08 08:48] LABS: CALCIUM 8.3 mg/dL (8.5-10.1); CREATININE 0.8 mg/dL (0.6-1.3); MAGNESIUM 1.6 mg/dL (1.8-2.4); PHOSPHOROUS 3.5 mg/dL (2.5-4.9); POTASSIUM 4.3 mmol/L (3.5-5.1)
[2016-07-08] MEDS: LORAZEPAM 1 MG TABLET PO SCH ×3 (08:51→20:14)
[2016-07-08] MEDS: GABAPENTIN 300 MG CAPSULE PO SCH ×3 (08:51→20:14)
[2016-07-08] MEDS: THIAMINE HCL 100 MG TABLET PO SCH (08:52)
[2016-07-08] MEDS: FOLIC ACID 1 MG TABLET PO SCH (08:52)
[2016-07-08] MEDS: PAROXETINE HCL 20 MG TABLET PO SCH (08:52)
[2016-07-08] MEDS: BUPRENORPHINE HCL 2 MG TAB.SUBL SL SCH ×2 (08:52→20:15)
[2016-07-08] MEDS: MULTIVITAMINS,THERAPEUTIC TABLET PO SCH (08:54)
[2016-07-08] MEDS: LIDOCAINE 5% PATCH TD SCH (08:54)
[2016-07-08 09:33] LABS: BAND % (MANUAL) 1 % (0-10); BASOPHILS % (MANUAL) 1 % (0-2); EOSINOPHILS % (MANUAL) 2 % (0-8); LYMPHOCYTES % (MANUAL) 36 % (20-40); MONOCYTES % (MANUAL) 8 % (2-10); NEUTROPHILS % (MANUAL) 52 % (42-75)
[2016-07-08 09:43] LABS: ANISOCYTOSIS 3+; HYPOCHROMASIA 2+; OVALOCYTES 1+; PLATELET ESTIMATE ADEQU; TEAR DROP CELLS 1+
[2016-07-08 12:00] VITALS: BP 100/62
[2016-07-08 12:06] LABS: HCV AB <0.1 s/co ratio (0.0-0.9); HEPATITIS B CORE AB, IgM Negative (Negative); HEPATITIS B SURFACE AG Negative (Negative)
--- NOTE | 2016-07-08 12:30 | NUR ---
PRN Medications PRN Bentyl and Clonidine administered for withdrawal symptoms such as cold sweats, chills and stomach cramps. Addendum: 07/08/16 at 1919 by JD WRIGHT RN Zofran was also administered for nausea.
[2016-07-08] MEDS: CLONIDINE HCL 0.1 MG TABLET PO PRN ×2 (12:31→23:35)
--- NOTE | 2016-07-08 13:00 | NUR ---
Medication Re-assessment Medication was effective. Pt reports relieve from cramps and nausea and chills.
[2016-07-08] MEDS ORDERED: MAGNESIUM OXIDE 400 MG TABLET PO ONE (14:45)
[2016-07-08 16:00] VITALS: BP 100/65
--- NOTE | 2016-07-08 19:15 | NUR ---
START OF SHIFT Received 45 year old female patient admitted on 07/06/16 for ETOH, [place] and Belbuca dependency. Pt is full code with NKA. She reports a PMHx of spinal fusion, gastric bypass, anxiety, kidney failure, UTI, blood transfusion x3 d/t iron deficiency anemia. Pt reports using ETOH 1500 mL of vodka daily x2 weeks. Last dose was 1500 mL on 07/06/16. [place] 30 mg for 17 days. Last dose was 30 mg on 07/04/16 and Belbuca 600 mcg daily for 17 days. Last dose was 600 mcg on 07/04/16. Pt receiving 5 day Ativan taper and is receiving Subutex for chronic pain management. Per endorsement, pt received zofran, bentyl, and clonidine. Pt is alert and oriented x4, breathing is even and unlabored. Pt safe with bed locked in lowest position, side rails up x2 and call light within reach. Will continue to monitor.
--- NOTE | 2016-07-08 19:32 | NUR ---
End of Shift Endorsed pt to nightshift nurse. Pt is a 45 y/o female admitted for alcohol and [place] dependence. PT has been placed on a 5 day Ativan taper. Pt is also on Subutex maintenance. PT is tolerating the taper and moderately withdrawing at this time AEB COWS 5, CIWA 4 at 1600. Pt did not participate in groups and activities instead chose to stay in bed and rest. Pt appeared to be sleeping, did not administer 1500 medications due to pt being asleep. Charge nurse also assessed the pt and found her to be sleeping and too sedated for farther medication. Pt received PRN Zofran, clonidine and bentyl for withdrawal symptoms. Pt's IV was discontinued by Dr. Christianson. Intake: 1950ml, Void x4, BM x0. VS WNL, Full Code. Pt is in STABLE condition at this time. Remains compliant with medication and diet regimen. All needs have been met, All safety measures in place per hospital policy. Bed in lowest position, side rails up x2, call-light within reach. Will continue to monitor.
[2016-07-08 20:00] VITALS: BP 122/76
[2016-07-08] MEDS ORDERED: LORAZEPAM 1 MG TABLET PO PRN ×2 (20:30)
--- NOTE | 2016-07-08 21:37 | NUR ---
PRN ZOFRAN Pt complains of nausea with no episode of vomiting. PRN Zofran administered as ordered. Pt safe with bed locked in lowest position, side rails up x2 and call light within reach. Will monitor effectiveness.
--- NOTE | 2016-07-08 22:37 | NUR ---
PRN ZOFRAN REASSESSMENT PRN medication effective. Pt reports decrease in nausea. Respirations 16, breathing is even and unlabored. Pt safe with bed locked in locked in lowest position, side rails up x2 and call light within reach. Will continue to monitor.
--- NOTE | 2016-07-08 23:55 | NUR ---
PRN CLONIDINE/BACLOFEN Pt complains of anxiety and muscle spasms. PRN Clonidine and Baclofen administered as ordered. Breathing even and unlabored, respirations 16. Safety measures in place. Will continue to monitor effectiveness.
[2016-07-09] VITALS: BP 122/85
--- NOTE | 2016-07-09 00:55 | NUR ---
PRN CLONIDINE/BACLOFEN REASSESSMENT PRN medications effective. Pt lying in bed with eyes closed and is noted to be asleep. Breathing is even and unlabored. Pt is safe with bed locked in lowest position, side rails up x2 and call light within reach. Will monitor.
[2016-07-09 04:00] VITALS: BP 117/68
[2016-07-09] MEDS: PANTOPRAZOLE SODIUM 40 MG TABLET.DR PO SCH (06:45)
[2016-07-09] MEDS: ONDANSETRON 4 MG/2 ML VIAL IM PRN (06:59)
--- NOTE | 2016-07-09 06:59 | NUR ---
PRN ZOFRAN IM Pt complains of nausea with no episode of vomiting. Noted with facial grimacing and restlessness. PRN Zofran IM administered as ordered. Breathing even and unlabored, safety measures in place. Will endorse to monitor effectiveness.
--- NOTE | 2016-07-09 07:07 | NUR ---
END OF SHIFT Pt is a 45 year old female patient admitted on 07/06/16 for ETOH, [place] and Belbuca dependency. Pt is full code with NKA. Pt continues on 5 day Ativan taper and Subutex for chronic pain management and tolerating well. Pt complained of withdrawal symptoms of nausea, anxiety and muscle spasms. At 2137 she received PRN Zofran, At 2355 she received PRN Clonidine and Baclofen. At 0659 she received PRN Zofran IM for nausea. Will endorse to monitor effectiveness. Medications were effective. She slept a total of 7 hrs, Intake: 1923 mL Void:x4 BM:0 COWS: 7, CIWA: 5. Pt is alert and oriented x4, breathing is even and unlabored. Pt safe with bed locked in lowest position, side rails up x2 and call light within reach. Endorsed to oncoming shift.
--- NOTE | 2016-07-09 07:31 | NUR ---
START OF SHIFT NOTE: Received report from security shift supervisor nurse. Pt is a 45 year old female patient admitted on 07/06/16 for ETOH, [place] and Belbuca dependency. Pt is on a 5 day Ativan taper. Tolerating well. Pt is alert and oriented X 4. Color good, skin warm and dry. Respirations even and unlabored. Pt resting in bed at this time. Safety precautions observed. Call light within reach. Will continue to monitor.
[2016-07-09 08:00] VITALS: BP 100/60
[2016-07-09] MEDS: GABAPENTIN 300 MG CAPSULE PO SCH ×3 (08:51→21:27)
[2016-07-09] MEDS: BUPRENORPHINE HCL 2 MG TAB.SUBL SL SCH ×2 (08:51→21:28)
[2016-07-09] MEDS: THIAMINE HCL 100 MG TABLET PO SCH (08:51)
[2016-07-09] MEDS: MULTIVITAMINS,THERAPEUTIC TABLET PO SCH (08:51)
[2016-07-09] MEDS: FOLIC ACID 1 MG TABLET PO SCH (08:51)
[2016-07-09] MEDS: LIDOCAINE 5% PATCH TD SCH (08:52)
[2016-07-09] MEDS: LORAZEPAM 1 MG TABLET PO SCH ×4 (08:52→21:27)
[2016-07-09] MEDS: PAROXETINE HCL 20 MG TABLET PO SCH (08:52)
--- NOTE | 2016-07-09 09:00 | NUR ---
VSS CIWA 7 c/o anxiety, fine tremors, sweating and chills. Also c/o lower back pain. Toradol 30mg IM prn administered.
[2016-07-09] MEDS: KETOROLAC TROMETHAMINE 30 MG INJ IM PRN ×2 (09:03→21:54)
[2016-07-09 09:16] LABS: VIT D, 25-HYDROXY 18.6 ng/mL (30.0-100.0)
--- NOTE | 2016-07-09 10:10 | NUR ---
Pt states back pain went from 10/12 to 06/12 after Toradol prn
--- NOTE | 2016-07-09 10:45 | NUR ---
Clonidine 0.1mg po prn given for withdrawal symptoms.
[2016-07-09] MEDS: CLONIDINE HCL 0.1 MG TABLET PO PRN ×2 (10:48→18:24)
--- NOTE | 2016-07-09 13:00 | NUR ---
VSS CIWA 8. Pt c/o anxiety, fine tremors and chills.
[2016-07-09 13:43] VITALS: BP 125/83
[2016-07-09 18:04] VITALS: BP 122/79
--- NOTE | 2016-07-09 18:26 | NUR ---
Pt c/o anxiety. Clonidine 0.1mg po prn administered.
--- NOTE | 2016-07-09 18:43 | NUR ---
END OF SHIFT NOTE: Report given to shift leader nurse. Pt is a 45 year old female patient admitted on 07/06/16 for ETOH, [place] and Belb[place] dependency. Pt is on a 5 day Ativan taper. Tolerating well. Pt is alert and oriented X 4. Color good, skin warm and dry. Respirations even and unlabored. Vital signs have remained stable throughout shift. Toradol 30mg IM prn administered @ 0900. Pt also received Clonidine 0.1mg po prn @ 1045 and 1830. Last CIWA 6 @ 1700. Safety precautions observed. Call light within reach.
--- NOTE | 2016-07-09 19:30 | NUR ---
START OF SHIFT Received report from day shift nurse. Pt is a 45 year old female patient admitted on 07/06/16 for ETOH, [place] and Belbuca dependency. Pt is on a 5 day Ativan taper and Subutex as ordered. Tolerating well. Last CIWA was 6 at 1600. Pt is alert and oriented X 4. Color good, skin warm and dry. Respirations even and unlabored. Pt is in stable condition at this time,resting in bed. Safety precautions observed. Call light within reach. Will continue to monitor.
[2016-07-09 20:00] VITALS: BP 116/76
--- NOTE | 2016-07-09 21:57 | NUR ---
PRN TORADOL IM GIVEN SA ORDERED FOR C/O PAIN ALL OVER THE BODY.PAIN LEVEL IS 8/10.WILL MONITOR FOR EFFECTIVENESS.
--- NOTE | 2016-07-09 23:00 | NUR ---
PRN F/U PT VERBALIZES RELIEF FROM PAIN.PAIN LEVEL IS 0/10 AT THIS TIME.PT IS RESTING IN BED WITH EYES CLOSED.NO S/S OF DISTRESS NOTED,WILL BE MONITORED FOR SAFETY.
[2016-07-10] VITALS: BP 101/73
[2016-07-10 04:00] VITALS: BP 115/74
[2016-07-10] MEDS: CLONIDINE HCL 0.1 MG TABLET PO PRN ×2 (04:54→12:35)
--- NOTE | 2016-07-10 04:59 | NUR ---
PRN CLONIDINE GIVEN ORDERED FOR C/O ANXIETY,R/T WITHDRAWAL SYMPTOMS.WILL MONITOR.
--- NOTE | 2016-07-10 06:00 | NUR ---
PT STATES FEELING BETTER.ANXIETY RELIEVED.
--- NOTE | 2016-07-10 06:40 | NUR ---
END OF SHIFT Received report from day shift nurse. Pt is a 45 year old female patient admitted on 07/06/16 for ETOH, [place] and Belb[place] dependency. Pt is on a 5 day Ativan taper and Subutex as ordered. Tolerating well.Last CIWA was 2 at 0400. Pt is alert and oriented X 4. Color good, skin warm and dry. Respirations even and unlabored. Pt is in stable condition at this time,resting in bed.PRN Toradol IM was given last night for pain with good effect.PRN Clonidine given for anxiety at 0500.Pt slept 7 hrs;fluid intake was 855 mls; voided x 2 . Safety precautions observed. Call light within reach. Will continue to monitor.
[2016-07-10] MEDS: PANTOPRAZOLE SODIUM 40 MG TABLET.DR PO SCH (06:57)
--- NOTE | 2016-07-10 07:30 | NUR ---
START OF SHIFT NOTE: Received report from hourly shift manager nurse. 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 Pt is on a 5 day Ativan taper. Tolerating well. Pt is alert and oriented X 4. Color good, skin warm and dry. Respirations even and unlabored. Pt resting in bed at this time. Safety precautions observed. Call light within reach. Will continue to monitor.
[2016-07-10 08:00] VITALS: BP 115/75
--- NOTE | 2016-07-10 09:00 | NUR ---
VSS CIWA 11 c/o "major anxiety", sweating, chills and fine tremors.
[2016-07-10] MEDS: LORAZEPAM 1 MG TABLET PO SCH ×3 (09:33→20:34)
[2016-07-10] MEDS: BUPRENORPHINE HCL 2 MG TAB.SUBL SL SCH ×2 (09:33→20:35)
[2016-07-10] MEDS: MULTIVITAMINS,THERAPEUTIC TABLET PO SCH (09:33)
[2016-07-10] MEDS: FOLIC ACID 1 MG TABLET PO SCH (09:33)
[2016-07-10] MEDS: THIAMINE HCL 100 MG TABLET PO SCH (09:33)
[2016-07-10] MEDS: GABAPENTIN 300 MG CAPSULE PO SCH ×3 (09:33→20:34)
[2016-07-10] MEDS: PAROXETINE HCL 20 MG TABLET PO SCH (09:33)
[2016-07-10] MEDS: LIDOCAINE 5% PATCH TD SCH (09:37)
[2016-07-10] MEDS: BACLOFEN 20 MG TABLET PO PRN (10:23)
[2016-07-10] MEDS: KETOROLAC TROMETHAMINE 30 MG INJ IM PRN (10:25)
--- NOTE | 2016-07-10 10:30 | NUR ---
Baclofen 20mg po prn and Toradol 30mg IM prn administered for body aches and back pain.
--- NOTE | 2016-07-10 11:30 | NUR ---
Pt states body aches improved after Baclofen and Toradol prn
--- NOTE | 2016-07-10 12:38 | NUR ---
VSS Pt c/o anxiety Clonidine 0.1mg po prn given
[2016-07-10 13:02] VITALS: BP 125/83
--- NOTE | 2016-07-10 13:38 | NUR ---
Pt feels improved after Clonidine prn
[2016-07-10] MEDS ORDERED: METHYL SALICYLATE/MENTHOL CREAM 28 GM TUBE TOP PRN (16:00)
[2016-07-10 16:08] LABS: CALCIUM, IONIZED 4.6 mg/dL (4.5-5.6)
[2016-07-10 18:13] VITALS: BP 125/83
--- NOTE | 2016-07-10 18:52 | NUR ---
END OF SHIFT NOTE: Report given to field training manager nurse. Pt is a 45 year old female patient admitted on 07/06/16 for ETOH, [place] and Bel[place] dependency. Pt is on a 5 day Ativan taper. Tolerating well. Pt is alert and oriented X 4. Color good, skin warm and dry. Respirations even and unlabored. Vital signs have remained stable throughout shift. Toradol 30mg IM prn administered @ 1030. Pt also received Clonidine 0.1mg po prn @ 1230. Last CIWA 6 @ 1500. Safety precautions observed. Call light within reach.
--- NOTE | 2016-07-10 19:30 | NUR ---
START OF SHIFT Pt is a 45 year old female patient admitted on 07/06/16 for ETOH, [place] and [place] dependency. Pt is on a 5 day Ativan taper. Tolerating well. Pt is alert and oriented X 4. Color good, skin warm and dry. Respirations even and unlabored. Vital signs have remained stable . Last CIWA 6 @ 1500.Pt is resting in bed at this time.Urine sample obtained for testing. Safety precautions observed. Call light within reach.Will continue to monitor.
[2016-07-10 20:00] VITALS: BP 132/81
[2016-07-10] MEDS: BACLOFEN 20 MG TABLET PO SCH (20:35)
[2016-07-10] MEDS: ACETAMINOPHEN 325 MG TABLET PO SCH (20:36)
[2016-07-10] MEDS: NAPROXEN 500 MG TABLET PO SCH (20:36)
[2016-07-10 20:49] LABS: *BILIRUBIN,URIN NEGATIVE (NEGATIVE); *BLOOD, URINE NEGATIVE (NEGATIVE); *CLARITY,URINE CLOUDY (CLEAR); *COLOR,URINE YELLOW (YELLOW); *KETONES,URINE NEGATIVE (NEGATIVE); *PROTEIN,URINE NEGATIVE (NEGATIVE); *UROBILINOGEN,URINE 0.2 E.U./dl (NORMAL); LEUKOCYTE ESTERASE ,URINE 1+ (NEGATIVE); NITRITE, URINE NEGATIVE (NEGATIVE); UGLUCOSE NEGATIVE (NEGATIVE)
[2016-07-10 21:08] LABS: BACTERIA,URINE MANY /HPF (NONE SEEN); RBC,URINE 0-3 /HPF (0-3); SQUAMOUS EPITHELIAL CELL,UR FEW /HPF (NONE SEEN)
[2016-07-11] VITALS: BP 126/79
[2016-07-11] MEDS: NITROFURANTOIN/NITROFURAN MAC 100 MG CAPSULE PO SCH ×3 (00:43→20:44)
[2016-07-11] MEDS ORDERED: NITROFURANTOIN/NITROFURAN MAC 100 MG CAPSULE ONE (00:49)
[2016-07-11] MEDS: KETOROLAC TROMETHAMINE 30 MG INJ IM PRN ×2 (01:40→10:54)
[2016-07-11] MEDS: ONDANSETRON ODT 4 MG TAB.RAPDIS SL PRN (01:40)
--- NOTE | 2016-07-11 01:40 | NUR ---
PRN MEDS PRN ZOFRAN GIVEN ORDERED FOR C/O NAUSEA.NO C/O VOMITING NOTED. PRN TORADOL IM GIVEN ORDERED FOR C/O LOW BACK PAIN.PAIN LEVEL IS 7/10.WILL MONITOR.
--- NOTE | 2016-07-11 02:40 | NUR ---
PRN F/U PT DENIES ANY PAIN AT THIS TIME,NO C/O NAUSEA NOTED.
--- NOTE | 2016-07-11 04:00 | NUR ---
Pt refused v/s.CIWA deferred.
--- NOTE | 2016-07-11 06:49 | NUR ---
END OF SHIFT Pt is a 45 year old female patient admitted on 07/06/16 for ETOH, [place] and [place] dependency. Pt is on a 5 day Ativan taper. Tolerating well. Pt is alert and oriented X 4. Color good, skin warm and dry. Respirations even and unlabored. Vital signs have remained stable . Last CIWA 5.Urine sample showed s/s of infection.Pt started on Macrobid.Pt c/o nausea and back pain;was given Zofran and Toradol as ordered with good effect.Pt slept 7 hrs;fluid intake was 4,378 mls,voided x 3. Safety precautions observed. Call light within reach.Will continue to monitor.
[2016-07-11] MEDS: PANTOPRAZOLE SODIUM 40 MG TABLET.DR PO SCH (07:12)
[2016-07-11 07:26] LABS: BASOPHILS % (AUTO) 0.3 % (0.0-2.0); EOSINOPHILS # (AUTO) 0.1 K/uL (0.0-0.7); EOSINOPHILS % (AUTO) 1.9 % (0.0-7.0); HEMATOCRIT 27.6 % (37-47); HEMOGLOBIN 8.9 G/DL (12.0-16.0); LYMPHOCYTES # (AUTO) 1.3 K/UL (0.8-4.8); MEAN CORPUSCULAR HEMOGLOBIN 23.2 UUG (27.0-31.0); MEAN CORPUSCULAR HGB CONC 32 g/dL (32.0-37.0); MEAN CORPUSCULAR VOLUME 71.5 FL (81.0-99.0); MONOCYTES # (AUTO) 0.1 K/UL (0.1-1.30); MONOCYTES % (AUTO) 1.7 % (0.0-11.0); NEUTROPHILS # (AUTO) 5.1 K/UL (1.8-8.9); NEUTROPHILS % (AUTO) 77.1 % (38.5-71.5); PLATELET COUNT (AUTO) 182 K/UL (150-450); RED BLOOD CELL COUNT(AUTO) 3.86 MIL/UL (4.2-5.4); RED CELL DISTRIBUTION WIDTH 21.7 % (11.5-14.5); WHITE BLOOD COUNT (AUTO) 6.6 K/UL (4.0-11.2)
--- NOTE | 2016-07-11 07:32 | NUR ---
START OF SHIFT Received pt this AM Aox4. Pt resting in bed and reports she has back pain and tremors. Patient on 5 day Ativan taper. Patient started Macrobid yesterday for elevated WBC in urine. Last CIWA 5 per night nurse. Patient given PRN Zofran and Toradol per night nurse with effectiveness. Encouraged group and activity attendance this shift. Will provide safe and supportive environment. Will continue to monitor.
[2016-07-11 08:00] VITALS: BP 105/70
[2016-07-11 08:05] LABS: CALCIUM 8.3 mg/dL (8.5-10.1); CREATININE 0.7 mg/dL (0.6-1.3); MAGNESIUM 2.1 mg/dL (1.8-2.4)
[2016-07-11] MEDS: CHOLECALCIFEROL 1,000 UNIT TABLET PO SCH (08:51)
[2016-07-11] MEDS: THIAMINE HCL 100 MG TABLET PO SCH (08:51)
[2016-07-11] MEDS: PAROXETINE HCL 20 MG TABLET PO SCH (08:52)
[2016-07-11] MEDS: BACLOFEN 20 MG TABLET PO SCH ×3 (08:52→20:43)
[2016-07-11] MEDS: LORAZEPAM 1 MG TABLET PO SCH ×2 (08:52→20:44)
[2016-07-11] MEDS: BUPRENORPHINE HCL 2 MG TAB.SUBL SL SCH ×2 (08:52→20:43)
[2016-07-11] MEDS: GABAPENTIN 300 MG CAPSULE PO SCH ×3 (08:53→20:43)
[2016-07-11] MEDS: NAPROXEN 500 MG TABLET PO SCH ×2 (08:53→20:44)
[2016-07-11] MEDS: LIDOCAINE 5% PATCH TD SCH (08:53)
[2016-07-11] MEDS: ACETAMINOPHEN 325 MG TABLET PO SCH ×3 (08:53→20:43)
[2016-07-11] MEDS: FOLIC ACID 1 MG TABLET PO SCH (08:53)
[2016-07-11] MEDS: MULTIVITAMINS,THERAPEUTIC TABLET PO SCH (08:53)
[2016-07-11 08:54] LABS: THYROID STIMULATING HORMONE 1.566 mIU/mL (0.358-3.740)
--- NOTE | 2016-07-11 10:55 | NUR ---
PRN MEDS PRN Toradol IM given for back pain 7/10 on pain scale. Will reassess
--- NOTE | 2016-07-11 11:30 | NUR ---
PRN REASSESSMENT Patient sleeping soundly in bed with rr even and unlabored at 17. Bed locked and in lowest position w/ call esparza in reach will continue to monitor
[2016-07-11 12:00] VITALS: BP 121/75
[2016-07-11] MEDS ORDERED: PHENAZOPYRIDINE HCL 100 MG TABLET PO SCH (15:00)
[2016-07-11 16:00] VITALS: BP 125/75
[2016-07-11] MEDS: CLONIDINE HCL 0.1 MG TABLET PO PRN (16:09)
--- NOTE | 2016-07-11 16:11 | NUR ---
PRN MEDS PRN CLONIDINE given for c/o anxiety. patient reports sweating and feeling anxious. Bp stable. Will reassess
--- NOTE | 2016-07-11 16:50 | NUR ---
PRN REASSESSMENT Patient reports feeling better. She states she is less sweaty and feels less anxious. Will continue to monitor
--- NOTE | 2016-07-11 18:38 | NUR ---
Patient reports trouble breathing. Assessed patient and discovered wheezing and rhonchi in lung . Oxygen Saturation 97% on room air. Dr. adorno to bedside to assess patient. 2 L of Oxygen nasal cannula administered to patient. ordered ekg and troponin. Breathing tx and Albuterol to be ordered if ekg is normal. Will endorse to warehouse shift supervisor
--- NOTE | 2016-07-11 18:40 | NUR ---
START OF SHIFT Patient continues on 5 day Ativan taper and tolerating well. Patient on fall/seizure precautions. Last CIWA 5 at 1600. PRN Toradol and Clonidine given for back pain and anxiety with effectiveness. Pt continues on Macrobid for urinary infection.Patient on 2 L of O2 per NC with wheezing and rhonchi to lung . Patient attended some groups today. All needs have been met. Safety measures in place. Will pass shift report to night nurse. Addendum: 07/11/16 at 1841 by NOEMI COTTRELL RN END OF SHIFT NOTE
--- NOTE | 2016-07-11 19:01 | NUR ---
EKG COMPLETE ekg normal sinus rhythm HR 65. aware
[2016-07-11 19:25] LABS: BASOPHILS % (AUTO) 0.7 % (0.0-2.0); EOSINOPHILS # (AUTO) 0.1 K/uL (0.0-0.7); EOSINOPHILS % (AUTO) 1.4 % (0.0-7.0); HEMATOCRIT 26.4 % (37-47); HEMOGLOBIN 8.5 G/DL (12.0-16.0); LYMPHOCYTES # (AUTO) 0.9 K/UL (0.8-4.8); MEAN CORPUSCULAR HEMOGLOBIN 22.8 UUG (27.0-31.0); MEAN CORPUSCULAR HGB CONC 32 g/dL (32.0-37.0); MONOCYTES # (AUTO) 0.4 K/UL (0.1-1.30); MONOCYTES % (AUTO) 5.8 % (0.0-11.0); NEUTROPHILS # (AUTO) 4.8 K/UL (1.8-8.9); NEUTROPHILS % (AUTO) 77.1 % (38.5-71.5); PLATELET COUNT (AUTO) 185 K/UL (150-450); RED BLOOD CELL COUNT(AUTO) 3.72 MIL/UL (4.2-5.4); RED CELL DISTRIBUTION WIDTH 21.7 % (11.5-14.5); WHITE BLOOD COUNT (AUTO) 6.2 K/UL (4.0-11.2)
[2016-07-11 19:28] LABS: CALCIUM 7.9 mg/dL (8.5-10.1); CREATININE 0.8 mg/dL (0.6-1.3); POTASSIUM 4.1 mmol/L (3.5-5.1)
--- NOTE | 2016-07-11 19:30 | NUR ---
START OF SHIFT Pt is a 45 year old female patient admitted on 07/06/16 for ETOH, [place] and Belb[place] dependency. Pt is on a 5 day Ativan taper. Tolerating well. Pt is alert and oriented X 4. Color good, skin warm and dry. Respirations even and slightly labored. Vital signs have remained stable . Last CIWA 5. Pt continues to remain on Macrobid for urinary infection; no A/R noted.PO fluids encouraged as tolerated. Safety precautions observed. Call light within reach.Will continue to monitor.
[2016-07-11 19:37] LABS: ANISOCYTOSIS 2+; HYPOCHROMASIA 2+
[2016-07-11 20:00] VITALS: BP 134/84
[2016-07-11] MEDS: IPRATROPIUM BROMIDE 0.5 MG/2.5 ML NEBU NEB PRN (20:23)
[2016-07-11] MEDS: ALBUTEROL SULFATE 2.5 MG/ 0.5 ML NEBU NEB PRN (20:23)
--- NOTE | 2016-07-11 20:30 | NUR ---
PT C/O HAVING DIFFICULTY BREATHING.PRN NEBULIZER TREATMENT ADMINISTERED ORDERED BY RT.WILL MONITOR.
[2016-07-11] MEDS: PHENAZOPYRIDINE HCL 100 MG TABLET PO SCH (20:43)
[2016-07-11] MEDS: FERROUS SULFATE 325 MG TABEC PO SCH (20:43)
--- NOTE | 2016-07-11 21:00 | NUR ---
PT VERBALIZES "FEELING BETTER".
[2016-07-11] MEDS: ASCORBIC ACID 250 MG TABLET PO SCH (21:27)
[2016-07-12] VITALS: BP 130/78
[2016-07-12] MEDS: ONDANSETRON 4 MG/2 ML VIAL IM PRN ×2 (00:57→11:39)
--- NOTE | 2016-07-12 01:00 | NUR ---
PRN ZOFRAN IM GIVEN ORDERED FOR C/O NAUSEA PER PT REQUEST.NO C/O VOMITING NOTED.WILL MONITOR.
--- NOTE | 2016-07-12 02:00 | NUR ---
NAUSEA RELIEVED.NO C/O VOMITING NOTED.
[2016-07-12 04:00] VITALS: BP 104/75
--- NOTE | 2016-07-12 06:49 | NUR ---
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 Pt is on a 5 day Ativan taper. Tolerating well. Pt is alert and oriented X 4. Color good, skin warm and dry. Respirations even and slightly labored. Vital signs have remained stable . Last CIWA - 3..PRN Zofran and nebulizer tx given last night with good effect. Pt continues to remain on Macrobid for urinary infection; no A/R noted.PO fluids encouraged as tolerated. Pt slept 10 hrs ;fluid intake was 1035 mls,vioided x 3. Safety precautions observed. Call light within reach.Will continue to monitor.
--- NOTE | 2016-07-12 07:15 | NUR ---
START OF SHIFT NOTE Received pt this AM AOx4. Patient reports feeling "back pain, body aches,and body twitching." Patient requesting Toradol shot for back pain. Patient states she still feels like she is wheezing but reports her breathing is much better. She still sounds a bit congested. She was given PRN Toradol and Zofran per night nurse with effectiveness. Patient continues on Ativan taper and tolerating well. She continues on macrobid for urinary infection. Patient slept 10 hours. Last CIWA 3 per weight shifter. Encouraged attendance of groups and activities. Will provide safe and supportive environment. Will continue to monitor
[2016-07-12] MEDS: KETOROLAC TROMETHAMINE 30 MG INJ IM PRN (07:29)
--- NOTE | 2016-07-12 07:36 | NUR ---
PRN MEDICATION PRN Toradol IM given for back pain 10/12. Will reassess
[2016-07-12 08:00] VITALS: BP 130/50
[2016-07-12] MEDS: LIDOCAINE 5% PATCH TD SCH (08:12)
[2016-07-12] MEDS: ACETAMINOPHEN 325 MG TABLET PO SCH ×3 (08:12→21:10)
[2016-07-12] MEDS: THIAMINE HCL 100 MG TABLET PO SCH (08:13)
[2016-07-12] MEDS: NAPROXEN 500 MG TABLET PO SCH ×2 (08:13→21:13)
[2016-07-12] MEDS: MULTIVITAMINS,THERAPEUTIC TABLET PO SCH (08:13)
[2016-07-12] MEDS: BUPRENORPHINE HCL 2 MG TAB.SUBL SL SCH ×2 (08:13→21:13)
[2016-07-12] MEDS: FOLIC ACID 1 MG TABLET PO SCH (08:13)
[2016-07-12] MEDS: PAROXETINE HCL 20 MG TABLET PO SCH (08:13)
[2016-07-12] MEDS: NITROFURANTOIN/NITROFURAN MAC 100 MG CAPSULE PO SCH ×2 (08:13→21:12)
[2016-07-12] MEDS: PHENAZOPYRIDINE HCL 100 MG TABLET PO SCH ×2 (08:14→21:13)
[2016-07-12] MEDS: CHOLECALCIFEROL 1,000 UNIT TABLET PO SCH (08:14)
[2016-07-12] MEDS: BACLOFEN 20 MG TABLET PO SCH (08:14)
[2016-07-12] MEDS: FERROUS SULFATE 325 MG TABEC PO SCH ×2 (08:14→21:12)
[2016-07-12] MEDS: ASCORBIC ACID 250 MG TABLET PO SCH ×2 (08:14→21:13)
--- NOTE | 2016-07-12 08:15 | NUR ---
PRN REASSESSMENT Pt states her back pain is now a 6/10. She states her body aches are better but her back still hurts. Will continue to monitor
[2016-07-12] MEDS: GABAPENTIN 300 MG CAPSULE PO SCH ×3 (08:17→21:11)
--- NOTE | 2016-07-12 08:18 | NUR ---
PT REFUSED GABAPENTIN. SHE STATES SHE THINKS ITS MAKING HER DIZZY AND WANTS TO SEE IF SHE IS STILL DIZZY IF SHE DOESNT TAKE IT. EDUCATED PATIENT ON RISKS AND BENEFITS. STILL REFUSED. WILL MONITOR
[2016-07-12] MEDS: LORAZEPAM 1 MG TABLET PO SCH ×3 (11:36→21:12)
--- NOTE | 2016-07-12 11:40 | NUR ---
PRN MEDS PRN Zofran IM given per pt request. Patient reports she gets nauseous when she stands up. Will reassess
[2016-07-12 12:00] VITALS: BP 114/71
--- NOTE | 2016-07-12 12:14 | NUR ---
PRN REASSESSMENT Patient states she is no nauseated at the moment. Will continue to monitor
[2016-07-12] MEDS ORDERED: NICOTINE POLACRILEX 4 MG GUM-PK OF TEN BC PRN (12:45)
[2016-07-12] MEDS: BACLOFEN 20 MG TABLET PO PRN (14:22)
--- NOTE | 2016-07-12 14:23 | NUR ---
PRN MEDS PRN Baclofen given for muscle spasms. Will reassess
[2016-07-12 16:00] VITALS: BP 115/73
--- NOTE | 2016-07-12 18:33 | NUR ---
END OF SHIFT Patient on modified day Ativan taper and tolerating well. Patient on fall/seizure precautions. Last CIWA 3 COWS 3 at 1600. PRN Toradol and Baclofen given for back pain and muscle spasms with effectiveness. Pt continues on Macrobid for urinary infection.Patient on 2 L of O2 per NC with wheezing and rhonchi to lung . Chest xray and echocardiogram negative. BNP slightly elevated. saw patient and mentioned possible blood transfusion after he consults with Dr. adorno. Will endorse this to night stocker. Patient did not attend groups or activities today and stayed in bed resting most of shift. All needs have been met. Safety measures in place. Will pass shift report to night nurse.
[2016-07-12 20:00] VITALS: BP 129/85
--- NOTE | 2016-07-12 20:00 | NUR ---
Start of Shift Pt is a 45 year old female admitted for ETOH dependence, placed on 5 day Ativan taper. Pt reported consuming Vodka 1500mg/daily x2 weeks, [place] 30mg/daily x17 days and Belbuca 600mcg/daily x17 days. PMH: Spinal fusion (2012), Gastric bypass (20 years ago), anxiety, kidney failure (2016), UTI, Blood transfusion x3 (2016) d/t iron deficiency anemia. NKA, regular diet, fall/seizure precautions (denies hx of seizures) and full code. Upon reassessment, pt reports anxiety, reports muscle aches/spasms, fine tremors noted, pt is on 2 liters of O2 per NC with wheezing and rhonchi to lung . Pt is on Macrobid for urinary infection. skin is noted with moderate sweat, denies n/v/d, denies chest pain, bowel sounds active x4, abdomen soft. Safety measures in place, call light within reach, side rails up x2, bed locked and in low position. Will continue to monitor.
[2016-07-12] MEDS: IPRATROPIUM BROMIDE 0.5 MG/2.5 ML NEBU NEB PRN (21:11)
[2016-07-12] MEDS: ALBUTEROL SULFATE 2.5 MG/ 0.5 ML NEBU NEB PRN (21:11)
[2016-07-13] VITALS (12 sets, daily range): BP systolic 104–158; BP diastolic 67–99
--- NOTE | 2016-07-13 | NUR ---
Vital Signs BP 119/79, Pulse 70, respirations 16, Spo2 97%, temp 98.3, pain 0/10 CIWA/COWS assessment deferred d/t pt sleeping - to assessment while pt is awake as ordered. Safety measures in place, will continue to monitor.
[2016-07-13] MEDS: ONDANSETRON ODT 4 MG TAB.RAPDIS SL PRN ×2 (01:21→08:34)
[2016-07-13] MEDS: KETOROLAC TROMETHAMINE 30 MG INJ IM PRN (01:22)
--- NOTE | 2016-07-13 01:22 | NUR ---
PRN Administration Pt reported aching back pain /10, s/s of moaning/groaning. Pt also reported nausea. Toradol Inj 30mg/1ml and Zofran 4mg ODT administered Safety measures in place. Will continue to monitor.
--- NOTE | 2016-07-13 02:22 | NUR ---
PRN Reassessment Upon reassessment, pt is sleeping, eyes closed, respirations unlabored, no verbal cues or s/s of acute distress noted. Safety measures in place. Will continue to monitor.
--- NOTE | 2016-07-13 04:00 | NUR ---
Vital Signs BP 104/67, Pulse 64, respirations 16, Spo2 97%, temp 98.4, pain 0/10 CIWA/COWS assessment deferred d/t pt sleeping - to assessment while pt is awake as ordered. Safety measures in place, will continue to monitor.
--- NOTE | 2016-07-13 07:00 | NUR ---
End of Shift Pt is a 45 year old female admitted for EOTH dependence, placed on 5 day Ativan taper. Pt reported consuming Vodka 1500mg/daily x2 weeks, [place] 30mg/daily x17 days and Belbuca 600mcg/daily x17 days. PMH: Spinal fusion (2012), Gastric bypass (20 years ago), anxiety, kidney failure (2016), UTI, Blood transfusion x3 (2016) d/t iron deficiency anemia. NKA, regular diet, fall/seizure precautions (denies hx of seizures) and full code. During shift, pt presented with anxiety, reported muscle aches/spasms, fine tremors noted - scheduled taper medications administered, pt reports effective in management of s/s of withdrawal, CIWA 3 and COWS 3. Breathing treatment provided during shift, Toradol inj 30mg/1ml and Zofran 4mg ODT administered for pain and nausea, effective. Pt is on 2 liters of O2 per NC with wheezing and rhonchi to lung . Pt is on Macrobid for urinary infection. Pt slept for 6 hours, intake of 1210 ml PO and voids x2. Safety measures in place, call light within reach, side rails up x2, bed locked and in low position. Endorsed to day shift nurse.
--- NOTE | 2016-07-13 07:46 | NUR ---
START OF SHIFT Pt 45y/o male admitted for etoh and opioid dependence. Pt received in room awake watching television on bed. Pt alert and oriented to name, place, and time. Perrla. Skin warm and dry to touch. Respirations even and unlabored. pharmacy technician program director in room as well. It was reported that pt slept for 6 hours last night. Bed on lowest position with side rails x2 up for safety. Call light within reach. No distress noted at this time.
[2016-07-13 08:23] LABS: CALCIUM 8.1 mg/dL (8.5-10.1); CREATININE 0.8 mg/dL (0.6-1.3); MAGNESIUM 2.2 mg/dL (1.8-2.4); PHOSPHOROUS 4.3 mg/dL (2.5-4.9); POTASSIUM 3.6 mmol/L (3.5-5.1)
[2016-07-13] MEDS: FOLIC ACID 1 MG TABLET PO SCH (08:32)
[2016-07-13] MEDS: FERROUS SULFATE 325 MG TABEC PO SCH ×2 (08:32→20:24)
[2016-07-13] MEDS: ASCORBIC ACID 250 MG TABLET PO SCH ×2 (08:32→20:24)
[2016-07-13] MEDS: PHENAZOPYRIDINE HCL 100 MG TABLET PO SCH (08:32)
[2016-07-13] MEDS: THIAMINE HCL 100 MG TABLET PO SCH (08:33)
[2016-07-13] MEDS: MULTIVITAMINS,THERAPEUTIC TABLET PO SCH (08:33)
[2016-07-13] MEDS: BUPRENORPHINE HCL 2 MG TAB.SUBL SL SCH ×2 (08:33→21:00)
[2016-07-13] MEDS: ACETAMINOPHEN 325 MG TABLET PO SCH ×3 (08:33→20:24)
[2016-07-13] MEDS: NITROFURANTOIN/NITROFURAN MAC 100 MG CAPSULE PO SCH ×2 (08:33→20:24)
[2016-07-13] MEDS: NAPROXEN 500 MG TABLET PO SCH (08:33)
[2016-07-13] MEDS: GABAPENTIN 300 MG CAPSULE PO SCH ×3 (08:33→20:23)
[2016-07-13] MEDS: CHOLECALCIFEROL 1,000 UNIT TABLET PO SCH (08:33)
[2016-07-13] MEDS: LIDOCAINE 5% PATCH TD SCH (08:34)
[2016-07-13] MEDS: PAROXETINE HCL 20 MG TABLET PO SCH (08:34)
--- NOTE | 2016-07-13 08:34 | NUR ---
PRN Pt with c/o nausea this morning. Zofran po prn per MD order given and tolerated well.
[2016-07-13 08:47] LABS: MEAN CORPUSCULAR HEMOGLOBIN 22.9 UUG (27.0-31.0)
[2016-07-13 08:50] LABS: BASOPHILS % (AUTO) 0.3 % (0.0-2.0); EOSINOPHILS # (AUTO) 0.1 K/uL (0.0-0.7); EOSINOPHILS % (AUTO) 1.9 % (0.0-7.0); HEMATOCRIT 28.3 % (37-47); HEMOGLOBIN 9.1 G/DL (12.0-16.0); LYMPHOCYTES # (AUTO) 2.2 K/UL (0.8-4.8); LYMPHOCYTES % (AUTO) 33.4 % (20.5-51.5); MEAN CORPUSCULAR HGB CONC 32 g/dL (32.0-37.0); MEAN CORPUSCULAR VOLUME 71.5 FL (81.0-99.0); MONOCYTES # (AUTO) 0.5 K/UL (0.1-1.30); MONOCYTES % (AUTO) 8.3 % (0.0-11.0); NEUTROPHILS # (AUTO) 3.8 K/UL (1.8-8.9); NEUTROPHILS % (AUTO) 56.1 % (38.5-71.5); PLATELET COUNT (AUTO) 152 K/UL (150-450); RED BLOOD CELL COUNT(AUTO) 3.96 MIL/UL (4.2-5.4); RED CELL DISTRIBUTION WIDTH 22.7 % (11.5-14.5); WHITE BLOOD COUNT (AUTO) 6.6 K/UL (4.0-11.2)
[2016-07-13] MEDS ORDERED: LORAZEPAM 1 MG TABLET PO SCH (09:00)
[2016-07-13 09:17] LABS: BAND % (MANUAL) 2 % (0-10); EOSINOPHILS % (MANUAL) 1 % (0-8); LYMPHOCYTES % (MANUAL) 30 % (20-40); MONOCYTES % (MANUAL) 6 % (2-10); NEUTROPHILS % (MANUAL) 61 % (42-75)
[2016-07-13 09:18] LABS: ANISOCYTOSIS 2+; HYPOCHROMASIA 2+; PLATELET ESTIMATE ADEQUATE
--- NOTE | 2016-07-13 09:34 | NUR ---
PRN EVAL Pt denies any nausea at this time.
[2016-07-13] MEDS ORDERED: diphenhydrAMINE 25 MG CAP PO PRN (10:15)
[2016-07-13] MEDS ORDERED: ACETAMINOPHEN 325 MG TABLET PO PRN (10:15)
[2016-07-13] MEDS ORDERED: NAPROXEN 500 MG TABLET PO PRN (14:00)
--- NOTE | 2016-07-13 14:50 | NUR ---
NSG ENTRY Discussed with Dr. Watson that the tylenol scheduled to be given at 1500 was too close, as the pt would receive the premedication of tylenol very soon, with instructions to hold the scheduled dose of tylenol, noted and carried out.
--- NOTE | 2016-07-13 17:04 | NUR ---
BLOOD TRANS Blood transfusion started , verified with 2 RNs. Pt tolerating well. No distress noted. Staying with pt to monitor for any possible reactions. Pt on bed awake watching television on lowest position with side rails x2 up for safety. Call light within reach.
--- NOTE | 2016-07-13 18:07 | NUR ---
END OF SHIFT Pt 45y/o male admitted for etoh and opioid dependence. Pt alert and oriented to name, place, and time. Perrla. Skin warm and dry to touch. Respirations even and unlabored. Pt with peripheral IV 20g on right forearm infusing blood at 125mL/ hr, and is tolerating well. Pt observed mostly in room throughout the day with minimal peer interaction. Pt is scheduled to be discharged tomorrow. Pt medication compliant and tolerated well. No ASE noted. Bed on lowest position with side rails x2 up for safety. Call light within reach. No distress noted at this time.
--- NOTE | 2016-07-13 19:00 | NUR ---
Start of Shift Pt is a 45 year old female admitted for ETOH and Opioid dependence. PMH: Spinal fusion (2013), Gastric bypass (20 years ago), anxiety, kidney failure (2016), UTI, Blood transfusion x3 (2016) d/t iron deficiency anemia. NKA, regular diet, fall/seizure precautions (denies hx of seizures) and full code. Pt is a alert/oriented x4, Pt is has peripheral IV 20g on right forearm infusing blood at 125ml/hr - pt is tolerating well, no ASE noted. Respirations even/unlabored, denies SOB/chest pain. Pt is on 2 liters of O2 per NC with wheezing and rhonchi to lung . Pt is scheduled for discharge tomorrow. Pt is in compliance with medications and with plan of care. Safety measures in place, call light within reach, side rails up x2, bed locked and in low position. Will continue to monitor.
--- NOTE | 2016-07-13 19:20 | NUR ---
Blood Transfusion completed, pt tolerated well, no ASE noted. BP 138/87, pulse 76, temp 97.8, respirations 17, SpO2 96%, no pain 0/10. Blood products returned to lab. Will continue to monitor.
[2016-07-13] MEDS: CLONIDINE HCL 0.1 MG TABLET PO PRN (21:36)
--- NOTE | 2016-07-13 21:36 | NUR ---
PRN Administration Pt reports feeling anxious, requests relief. BP 143/92, Pulse 62. Clonidine 0.1mg PRN administered. Safety measures in place, will continue to monitor.
--- NOTE | 2016-07-13 22:36 | NUR ---
PRN Reassessment Upon reassessment, BP 124/86, pulse 60. Pt reports feeling better, pt in bed, watching television. Safety measures in place. Will continue to monitor.
[2016-07-13 23:19] LABS: *AMPHETAMINE, URINE NEGATIVE (NEGATIVE); *BARBITURATE, URINE NEGATIVE (NEGATIVE); *CANNABINOID, URINE NEGATIVE (NEGATIVE); *COCCAINE, URINE NEGATIVE (NEGATIVE); *OPIATE, URINE NEGATIVE (NEGATIVE); *PHENCYCLIDINE SCREEN,URINE NEGATIVE (NEGATIVE)
[2016-07-14] VITALS: BP 126/85
--- NOTE | 2016-07-14 | NUR ---
Vital Signs BP 126/85, pulse 68, respirations 16, temp 98.1, Spo2 97%, no pain 0/10 CIWA/COWS deferred d/t pt sleeping, to assess while awake as ordered. Safety measures in place, will continue to monitor
[2016-07-14 04:00] VITALS: BP 130/89
--- NOTE | 2016-07-14 04:00 | NUR ---
Vital Signs BP 130/89, pulse 64, respirations 16, temp 98.9, Spo2 96%, no pain 0/10 CIWA/COWS deferred d/t pt sleeping, to assess while awake as ordered. Safety measures in place, will continue to monitor
--- NOTE | 2016-07-14 07:00 | NUR ---
End of Shift Pt is a 45 year old female admitted for ETOH and Opioid dependence. PMH: Spinal fusion (2013), Gastric bypass (20 years ago), anxiety, kidney failure (2016), UTI, Blood transfusion x3 (2016) d/t iron deficiency anemia. NKA, regular diet, fall/seizure precautions (denies hx of seizures) and full code. Pt is has peripheral IV 20g on right forearm, intact, patent/flushing well. At 1920, blood infusion at 125ml/hr completed, no ASE noted, VS at time of completion: BP 138/87, pulse 76, temp 97.8, respirations 17, SpO2 96%, no pain 0/10. Blood products were returned to lab. At 2135, pt reported anxiety with BP 143/92, Pulse 62. Clonidine 0.1mg PRN administered, effective. BP decreased to 124/86, pulse 60. Pt reported feeling better. Pt is on 2 liters of O2 per NC with wheezing and rhonchi to lung . Pt is in compliance with medications and with plan of care, CIWA 2 and COWS 2. Pt is scheduled for discharge today. Pt slept for 7 hours, intake of 946 ml PO and voids x2. Latest BP 130/89, pulse 64, respirations 16, Spo2 96%, temp 98.9, no pain 0/10. Safety measures in place, call light within reach, side rails up x2, bed locked and in low position. Endorsed to day shift nurse.
--- NOTE | 2016-07-14 07:30 | NUR ---
start of shift note: received pt from hourly shift manager nurse, pt is in stable condition at this time. [facility]. pt completed ativan taper. pt is awaiting medical clearance for discharge. pt tolerated blood transfusion well. no A/R noted. will continue to monitor pt for any changes and will continue to meet pts needs pts last ciwa 2 and last cows 2 and pt slept for 5 hrs. pts IV site still intact at this time
--- NOTE | 2016-07-14 08:15 | NUR ---
placed a call to Primary MD regarding dose of scheduled subutex prior to discharge, MD verbalized it was ok to give to patient.
[2016-07-14 08:17] LABS: BASOPHILS % (AUTO) 0.4 % (0.0-2.0); EOSINOPHILS # (AUTO) 0.2 K/uL (0.0-0.7); EOSINOPHILS % (AUTO) 2.5 % (0.0-7.0); HEMATOCRIT 30.9 % (37-47); HEMOGLOBIN 9.8 G/DL (12.0-16.0); LYMPHOCYTES # (AUTO) 1.9 K/UL (0.8-4.8); LYMPHOCYTES % (AUTO) 29.9 % (20.5-51.5); MEAN CORPUSCULAR HEMOGLOBIN 23.5 UUG (27.0-31.0); MEAN CORPUSCULAR HGB CONC 32 g/dL (32.0-37.0); MEAN CORPUSCULAR VOLUME 73.7 FL (81.0-99.0); MONOCYTES # (AUTO) 0.5 K/UL (0.1-1.30); MONOCYTES % (AUTO) 7.1 % (0.0-11.0); NEUTROPHILS # (AUTO) 3.9 K/UL (1.8-8.9); NEUTROPHILS % (AUTO) 60.1 % (38.5-71.5); PLATELET COUNT (AUTO) 141 K/UL (150-450); RED BLOOD CELL COUNT(AUTO) 4.19 MIL/UL (4.2-5.4); RED CELL DISTRIBUTION WIDTH 23.2 % (11.5-14.5); WHITE BLOOD COUNT (AUTO) 6.5 K/UL (4.0-11.2)
[2016-07-14 08:30] LABS: CALCIUM 8.4 mg/dL (8.5-10.1); CREATININE 0.7 mg/dL (0.6-1.3); MAGNESIUM 1.9 mg/dL (1.8-2.4); PHOSPHOROUS 4.1 mg/dL (2.5-4.9); POTASSIUM 3.9 mmol/L (3.5-5.1)
[2016-07-14] MEDS: ASCORBIC ACID 250 MG TABLET PO SCH (08:40)
[2016-07-14] MEDS: FOLIC ACID 1 MG TABLET PO SCH (08:41)
[2016-07-14] MEDS: GABAPENTIN 300 MG CAPSULE PO SCH (08:41)
[2016-07-14] MEDS: FERROUS SULFATE 325 MG TABEC PO SCH (08:41)
[2016-07-14] MEDS: BUPRENORPHINE HCL 2 MG TAB.SUBL SL SCH (08:41)
[2016-07-14] MEDS: PAROXETINE HCL 20 MG TABLET PO SCH (08:41)
[2016-07-14] MEDS: MULTIVITAMINS,THERAPEUTIC TABLET PO SCH (08:41)
[2016-07-14] MEDS: CHOLECALCIFEROL 1,000 UNIT TABLET PO SCH (08:41)
[2016-07-14] MEDS: ACETAMINOPHEN 325 MG TABLET PO SCH (08:41)
[2016-07-14 08:42] VITALS: BP 144/102
[2016-07-14] MEDS: THIAMINE HCL 100 MG TABLET PO SCH (08:42)
[2016-07-14] MEDS: CLONIDINE HCL 0.1 MG TABLET PO PRN (08:42)
[2016-07-14] MEDS: NITROFURANTOIN/NITROFURAN MAC 100 MG CAPSULE PO SCH (08:42)
[2016-07-14] MEDS: LIDOCAINE 5% PATCH TD SCH (08:42)
[2016-07-14] MEDS: BACLOFEN 20 MG TABLET PO PRN (08:53)
[2016-07-14 09:10] LABS: BAND % (MANUAL) 1 % (0-10); EOSINOPHILS % (MANUAL) 3 % (0-8); LYMPHOCYTES % (MANUAL) 34 % (20-40); MONOCYTES % (MANUAL) 5 % (2-10); NEUTROPHILS % (MANUAL) 57 % (42-75)
[2016-07-14 09:12] LABS: PLATELET ESTIMATE SLIGH
[2016-07-14 09:13] LABS: ANISOCYTOSIS 3+; HYPOCHROMASIA 1+; TEAR DROP CELLS 1+
[2016-07-14] MEDS ORDERED: CHOL10002 PO (09:28)
[2016-07-14] MEDS ORDERED: Baclofen PO (09:28)
[2016-07-14] MEDS ORDERED: ASCO250T5 PO (09:28)
[2016-07-14] MEDS ORDERED: FERR325T28 PO (09:28)
[2016-07-14] MEDS ORDERED: NICO4GUM BC (09:28)
--- NOTE | 2016-07-14 11:05 | NUR ---
discharge note: pt left the unit in stable condition, IV site was removed, pt tolerated procedure well. pt teaching was administered and pt verbalized understanding. pt left will all personal belongings. pt will be transferred to [facility] via private car
== END 2016-07-14 11:05 | disposition home or self-care (01) | DRG 895 ==
LOC: SRC 07-06 18:26
PROVIDERS: ADMIT Internal Medicine; ATTEND Internal Medicine
PROC: HZ2ZZZZ Detoxification Services for Substance Abuse Treatment (ICD-10-PCS; principal; 2016-07-06)
PROC: HZ31ZZZ Individual Counseling for Substance Abuse Treatment, Behavioral (ICD-10-PCS; 2016-07-08)
PROC: HZ41ZZZ Group Counseling for Substance Abuse Treatment, Behavioral (ICD-10-PCS; 2016-07-10)
PROC: 30233N1 Transfusion of Nonautologous Red Blood Cells into Peripheral Vein, Percutaneous Approach (ICD-10-PCS; 2016-07-13)
DX: F10.229 Alcohol dependence with intoxication, unspecified (principal); E87.2 Acidosis; N30.00 Acute cystitis without hematuria; F11.20 Opioid dependence, uncomplicated; K95.89 Other complications of other bariatric procedure; Y90.8 Blood alcohol level of 240 mg/100 ml or more; F41.1 Generalized anxiety disorder; Z98.84 Bariatric surgery status; F10.239 Alcohol dependence with withdrawal, unspecified; E83.42 Hypomagnesemia; Z98.1 Arthrodesis status; T14.90 Injury, unspecified; G62.9 Polyneuropathy, unspecified; X58.XXXS Exposure to other specified factors, sequela; D50.8 Other iron deficiency anemias; J44.9 Chronic obstructive pulmonary disease, unspecified; M54.5 Low back pain; E83.51 Hypocalcemia; T40.2X5A Adverse effect of other opioids, initial encounter; Y92.89 Other specified places as the place of occurrence of the external cause; E55.9 Vitamin D deficiency, unspecified; E07.81 Sick-euthyroid syndrome; F17.210 Nicotine dependence, cigarettes, uncomplicated; Z79.899 Other long term (current) drug therapy
CPT/HCPCS: 36415; 70030-TC; 71010; 80307; 80346; 80361; 82306; 82330; 82746; 83550; 83605; 83690; 83735; 84100; 84443; 84703; 85025; 86580; 86592; 86705; 86803; 86850; 86900; 86901; 86920; 87086; 87340; 87806; 93005; 93307; 94640; 94664; A4663; G6040-TC; J1885; J2405; J3411; J3590; J7030; P9016-BL; P9021; Q0162; Q0163

== ENCOUNTER 2016-07-06 15:01 | Emergency (ER) | payer BC, OTHER ==
[~2016-07-06] VITALS: Ht 165.1 cm; Wt 79.4 kg
--- NOTE | 2016-07-06 15:30 | NUR ---
DR SINGH AT THE BEDSIDE FOR EVAL AND EXAM.
[2016-07-06 15:55] LABS: BASOPHILS # (AUTO) 0.1 K/uL (0.0-8.0); BASOPHILS % (AUTO) 1.1 % (0.0-2.0); EOSINOPHILS # (AUTO) 0.1 K/uL (0.0-0.7); EOSINOPHILS % (AUTO) 0.7 % (0.0-7.0); HEMATOCRIT 36.9 % (37-47); HEMOGLOBIN 11.7 G/DL (12.0-16.0); LYMPHOCYTES # (AUTO) 4.2 K/uL (20.0-40.0); LYMPHOCYTES % (AUTO) 40.2 % (20.5-51.5); MEAN CORPUSCULAR HEMOGLOBIN 22.1 UUG (27.0-31.0); MEAN CORPUSCULAR HGB CONC 32 g/dL (32.0-37.0); MEAN CORPUSCULAR VOLUME 69.9 FL (81.0-99.0); MONOCYTES # (AUTO) 0.4 K/uL (2.0-10.0); MONOCYTES % (AUTO) 3.7 % (0.0-11.0); NEUTROPHILS # (AUTO) 5.6 K/uL (1.8-8.9); NEUTROPHILS % (AUTO) 54.3 % (38.5-71.5); RED BLOOD CELL COUNT(AUTO) 5.28 MIL/UL (4.2-5.4); RED CELL DISTRIBUTION WIDTH 21.5 % (11.5-14.5); WHITE BLOOD COUNT (AUTO) 10.4 K/UL (4.0-11.2)
[2016-07-06 15:56] LABS: CALCIUM 8.7 mg/dL (8.5-10.1); CREATININE 0.6 mg/dL (0.6-1.3); POTASSIUM 3.3 mmol/L (3.5-5.1)
[2016-07-06 16:00] LABS: PLATELET COUNT (AUTO) 338 K/UL (150-450)
[2016-07-06 16:08] LABS: ALBUMIN 4.4 g/dL (3.4-5.0); BILIRUBIN,DIRECT 0.1 mg/dL (0.0-0.2); BILIRUBIN,TOTAL 0.2 mg/dL (0.2-1.0); TOTAL PROTEIN, SERUM 8.4 g/dL (6.4-8.2)
--- NOTE | 2016-07-06 16:15 | NUR ---
Patient is resting comfortably in bed with eyes closed,NAD noted. continue w/ continous monitoring. [facility] REP lowe of pt's ER status.
[2016-07-06 16:55] LABS: ANISOCYTOSIS 2+; HYPOCHROMASIA 2+
--- NOTE | 2016-07-06 17:00 | NUR ---
pt is medically cleared by dr ashford for [facility] admit.
--- NOTE | 2016-07-06 17:00 | NUR ---
PT IS AWAKE AND STATES SHE NEEDS ALL HER "STUFF" AND ACCUSING STAFF OF STEALIING. [facility] NOTIFIED.
--- NOTE | 2016-07-06 18:11 | NUR ---
Patient discharged to [facility] in stable conditon. Written and verbal after care instructions given. [facility]
[2016-07-06 18:13] VITALS: BP 122/90
== END 2016-07-06 18:16 | disposition home or self-care (01) ==
LOC: ER 15:01
DX: F10.239 Alcohol dependence with withdrawal, unspecified (principal)
CPT/HCPCS: 36415; 85025; A4663; G6040-TC

== ENCOUNTER 2016-07-22 18:43 | Inpatient (IN) | payer BC, OTHER ==
[~2016-07-22] VITALS: Ht 162.6 cm; Wt 63.5 kg
[~2016-07-22 18:43] MED LIST changes: +BELBUCA300 MCG BC; +BENTYL20 M1 PO; -DICY20TA28 PO; +FEOSOL325 MG PO; -HYDR-3895 PO; +HYDROXYZINE PAM25 M1 PO; -LIDO30AD10 TD; +LIDODERM 5% P1 PATCH TD; +NICOTINE GUM4 MG BC; -PANT40TA2 PO; +PROTONIX40 MG PO; +VITAMIN C W/RO250 MG PO; +VITAMIN D1000 UNI1 PO; -[UNRECOGNIZED DRUG - CODE] BC
[2016-07-22] MEDS ORDERED: LORAZEPAM 1 MG TABLET PO PRN (23:45)
[2016-07-22] MEDS ORDERED: THIAMINE HCL 200 MG/2 ML VIAL IM ONE (23:45)
[2016-07-22] MEDS ORDERED: MIRALAX 17 GM POWD.PACK PO PRN (23:45)
[2016-07-22] MEDS ORDERED: ACETAMINOPHEN 325 MG TABLET PO PRN (23:45)
[2016-07-22] MEDS ORDERED: MAGNESIUM HYDROXIDE 30 ML LIQUID UDC PO PRN (23:45)
[2016-07-22] MEDS ORDERED: MAG HYDROX/AL HYDROX/SIMETH 30 ML LIQUID UDC PO PRN (23:45)
[2016-07-22] MEDS ORDERED: LORAZEPAM 2 MG/1 ML VIAL IM PRN (23:45)
[2016-07-22] MEDS ORDERED: LOPERAMIDE HCL 2 MG CAPSULE PO PRN ×2 (23:45)
[2016-07-22] MEDS ORDERED: ONDANSETRON 4 MG/2 ML VIAL IM PRN (23:45)
[2016-07-22] MEDS ORDERED: DICYCLOMINE HCL 20 MG TABLET PO PRN (23:45)
[2016-07-23] VITALS (8 sets, daily range): BP systolic 111–159; BP diastolic 77–97; TEMP 97.8–98.7
--- NOTE | 2016-07-23 | NUR ---
ADMISSION NOTE HT= 5'4" WT= 140 POUNDS. NKDA/NKFA COWS=6 / CIWA=6. V/S: B/P=127/82,HR=93,T=98.1,R=18,O2 SAT=93% ON ROOM AIR. Admitting 45 y/o female to [facility] for ETOH/OPIATE dependency/Pt is A/O X 3.She was recently discharged from [facility] 9 days ago,went home and relapsed.Pt came on a wheelchair d/t unsteady gait with a strong odor of alcohol.Placed on 1:1 close observation for safety.Body and skin check done,no contraband found.Pt has 2 bruises on her right arm and a scar on her left arm.Redness and 1+ pitting edema noted on bilateral lower extremities.Skin is intact,warm and dry to touch.Respirations even and non labored; bowel sounds hypoactive x 4; no c/o N/V/D noted.PMH of anxiety,Spinal fusion,gastric bypass,kidney failure in 2016 and anemia.No hx of seizure disorder noted.Pt denies any SI/HI/AH/VH.Pt does not have a PCP at this time.Pt was able to provide urine specimen without any problem. SUBSTANCE USE :- 1) ETOH - Pt has been drinking 2 bottles of 750 mls for the past 9 days;last drink was on 07-22-16 @ 2200. 2) [place] - Pt has been taking prescribed [place],2-3 times a day for the past 9 days,last taken on 07-21-16. 3)Belbuca - Pt has been taking prescribed Bel[place]uca,2 times daily for the past 9 days,last taken on 07-21-16. TREATMENT HX:- PT WAS RECENTLY DISCHARGED FROM [facility] ON 07-14-16.SHE WAS HERE FROM JULY 06 TO JULY 14. THIS IS HER THIRD ADMISSION. SHE WAS IN [facility] [place] IN MAY 2016. Pt oriented to room and unit;care plan and safety checks initiated.Pt is current smoker;smoking cessation encouraged with hand out,but Pt is not motivated to quit smoking at this time.She refused PNA vaccination;risks and benefits explained.All safety measures in place per hospital policy.Sitter at bed side. Bed in lowest position, side rails up x2, call-light within reach. notified of admission.Will continue to monitor. Addendum: 07/23/16 at 0659 by SUE ORO RN LATE ENTRY FOR ADMISSION NOTE 2 LITER OXYGEN ADMINISTERED VIA NASAL CANULA FOR O2 SAT OF 93%.
[2016-07-23] MEDS ORDERED: HYDROXYZINE PAMOATE 25 MG CAPSULE ONE (00:10)
[2016-07-23] MEDS ORDERED: METHOCARBAMOL 750 MG TABLET ONE (00:11)
[2016-07-23] MEDS: METHOCARBAMOL 750 MG TABLET PO PRN ×2 (00:11→08:35)
[2016-07-23] MEDS: HYDROXYZINE PAMOATE 25 MG CAPSULE PO PRN ×2 (00:12→21:20)
--- NOTE | 2016-07-23 00:14 | NUR ---
PRN MEDS PRN VISTARIL AND ROBAXIN GIVEN ORDERED FOR ANXIETY AND ACHES/PAIN.PAIN LEVEL 9/10.WILL MONITOR.
[2016-07-23] MEDS ORDERED: BUPRENORPHINE HCL 2 MG TAB.SUBL SL PRN (00:30)
--- NOTE | 2016-07-23 01:15 | NUR ---
PT RESTING IN BED WITH EYES CLOSED,BREATHING EVEN AND NON LABORED,NO S/S OF DISTRESS NOTED.SITTER AT BEDSIDE.WILL MONITOR FOR SAFETY.
[2016-07-23] MEDS ORDERED: NORCO 10-325 T1 EACH PO (02:19)
[2016-07-23] MEDS ORDERED: BELBUCA300 MCG BC (02:19)
--- NOTE | 2016-07-23 02:30 | NUR ---
Encouraged client to attend the afternoon group. Client declined stating she felt unwell.
[2016-07-23] MEDS: IBUPROFEN 400 MG TABLET PO PRN (02:48)
--- NOTE | 2016-07-23 02:50 | NUR ---
PRN MOTRIN GIVEN ORDERED FOR C/O HEADACHE.PAIN LEVEL IS 8/10.WILL MONITOR.
[2016-07-23] MEDS ORDERED: IBUPROFEN 400 MG TABLET ONE (02:56)
[2016-07-23] MEDS: CLONIDINE HCL 0.1 MG TABLET PO PRN ×2 (03:30→20:13)
[2016-07-23] MEDS: LORAZEPAM 1 MG TABLET PO PRN ×5 (03:30→23:01)
[2016-07-23] MEDS: ONDANSETRON ODT 4 MG TAB.RAPDIS SL PRN ×3 (03:31→21:20)
[2016-07-23] MEDS ORDERED: LORAZEPAM 1 MG TABLET ONE (03:37)
[2016-07-23] MEDS ORDERED: CLONIDINE HCL 0.1 MG TABLET ONE (03:38)
[2016-07-23] MEDS ORDERED: ONDANSETRON ODT 4 MG TAB.RAPDIS ONE (03:38)
--- NOTE | 2016-07-23 03:40 | NUR ---
PRN MEDS HEADACHE REDUCED TO 2/10.PRN ATIVAN I MG PO GIVEN FOR CIWA 6,PRN ZOFRAN GIVEN ORDERED FOR NAUSEA,NO C/O VOMITING NOTED.PRN CLONIDINE GIVEN ORDERED FOR W/D SYMPTOMS M/B RACING HR AND CHILLS.HR=93,WILL MONITOR FOR EFFECTIVENESS.
--- NOTE | 2016-07-23 04:40 | NUR ---
PRN F/U DECREASED W/D SYMPTOMS NOTED.CIWA=3,HR=88,PIN LEVEL IS 05/12.WILL CONTINUE TO MONITOR. Addendum: 07/23/16 at 0652 by SUE ORO RN NAUSEA RELIEVED.
--- NOTE | 2016-07-23 06:52 | NUR ---
END OF SHIFT Pt is 45 y/o female admitted to [facility] for ETOH/OPIATE dependency/Pt is A/O X 3.She was recently discharged from [facility] 9 days ago,went home and relapsed.Pt came on a wheelchair d/t unsteady gait with a strong odor of alcohol.Placed on 1:1 close observation for safety.PRN Vistaril,Robaxin,Motrin,Ativan and Clonidine given for W/D symptoms,which were effective.Pt slept intermittently for 5 hrs,fluid intake was 1565 mls,voided x 1. All needs met, All safety measures in place per hospital policy. Bed in lowest position, side rails up x2, call-light within reach. Will continue to monitor.
--- NOTE | 2016-07-23 07:26 | NUR ---
START OF SHIFT NOTE: Received report from sprinkler inspector nurse. 45 yo female admitted 5--17 for ETOH and opiate dependence. Pt is currently not on a taper. Pt is alert and oriented X4. Color pink, skin warm and dry. Respirations even and unlabored. Pt on 1:1 status due to unsteady gait. Pt smells of alcohol and states she is "going through bad withdrawal." BHT @ bedside. Safety precautions observed. Call light within reach.
--- NOTE | 2016-07-23 08:30 | NUR ---
VSS CI c/o anxiety, gross upper extremity tremors, body aches, nausea and sweating. Ativan 1 mg po prn and Robaxin 750mg po prn given Addendum: 07/23/16 at 1117 by RUBY IZQUIERDO RN Additional 1mg Ativan given to cover CI 17
[2016-07-23] MEDS: MULTIVITAMINS,THERAPEUTIC TABLET PO SCH (08:35)
[2016-07-23] MEDS: FOLIC ACID 1 MG TABLET PO SCH (08:36)
[2016-07-23] MEDS: THIAMINE HCL 100 MG TABLET PO SCH (08:36)
--- NOTE | 2016-07-23 08:48 | NUR ---
Pt c/o nausea. Zofran 4mg IM prn given
--- NOTE | 2016-07-23 08:50 | NUR ---
Robaxin 750mg po prn given for muscle aches
[2016-07-23] MEDS ORDERED: POTASSIUM CHLORIDE 20 MEQ TAB.PRT.SR PO ONE (09:00)
[2016-07-23] MEDS ORDERED: TUBERCULIN,PURIF.PROT.DERIV. 5 TU/0.1 ML TEST ID ONE (09:00)
--- NOTE | 2016-07-23 09:45 | NUR ---
Pt states nausea improved after Zofran prn. CXR ordered. Pt states "I always turn positive" with the TB test.
--- NOTE | 2016-07-23 09:50 | NUR ---
Pt states muscle aches improved after Robaxin prn
--- NOTE | 2016-07-23 10:51 | NUR ---
CIWA 13 c/o anxiety, pins and needles. Ativan 1mg po prn given
[2016-07-23] MEDS ORDERED: NICOTINE POLACRILEX 4 MG GUM-PK OF TEN BC PRN (11:45)
[2016-07-23] MEDS ORDERED: LORAZEPAM 1 MG TABLET PO PRN (11:45)
[2016-07-23] MEDS ORDERED: [UNRECOGNIZED DRUG - OTHER] PO PRN (11:45)
--- NOTE | 2016-07-23 11:50 | NUR ---
Pt states feels improved after Ativan prn CIWA 9
[2016-07-23] MEDS: LORAZEPAM 1 MG TABLET PO SCH ×3 (12:16→20:11)
[2016-07-23] MEDS: LIDOCAINE 5% PATCH TD SCH (12:20)
[2016-07-23] MEDS ORDERED: BUPRENORPHINE HCL 2 MG TAB.SUBL SL SCH (12:31)
--- NOTE | 2016-07-23 12:32 | NUR ---
VSS COWS 15 CIWA 15 Subutex 4mg sl prn administered. Pt c/o nausea, body aches, tremors, sweating and anxiety. Pt started on 3 day Ativan taper.
--- NOTE | 2016-07-23 13:42 | NUR ---
Pt states feels improved after Subutex 4mg prn. COWS 9
--- NOTE | 2016-07-23 14:15 | NUR ---
CIWA 12 Ativan 1mg po prn administered. Pt c/o gross tremors, sweating and anxiety
[2016-07-23] MEDS: GABAPENTIN 300 MG CAPSULE PO SCH ×2 (14:56→20:11)
[2016-07-23] MEDS: BACLOFEN 20 MG TABLET PO PRN ×2 (14:56→21:24)
--- NOTE | 2016-07-23 15:00 | NUR ---
Zofran 4mg sl prn given for nausea and Baclofen 20mg po prn given for body aches.
--- NOTE | 2016-07-23 15:03 | NUR ---
Pt states feels improved after Ativan 1mg prn CIWA 9
--- NOTE | 2016-07-23 15:54 | NUR ---
Pt states nausea improved after Zofran prn
[2016-07-23] MEDS ORDERED: Medication Not On Formulary EA ([Gabapentin] (Neurontin) 600 MG) PO SCH (17:00)
--- NOTE | 2016-07-23 18:44 | NUR ---
END OF SHIFT NOTE: Report given to maintenance supervisor 2nd shift nurse. 45 yo female admitted 07-04-16 for ETOH and opiate dependence. Pt placed on a 3 day Ativan taper and routine Subutex BID. Pt is alert and oriented X4. Color pink, skin warm and dry. Respirations even and unlabored. Pt on 1:1 status due to unsteady gait. Vital signs have remained stable throughout shift. Last CIWA 12 COWS 11 @ 1700. Ativan 2mg po prn given @ 0830 for CIWA 17. Zofran 4mg IM prn given @ 0900. Robaxin 750mg po prn given for muscle aches @ 0850. Subutex 4mg sl prn administered @ 1230. Ativan 1mg po prn administered @ 1415. Zofran 4mg sl prn given for nausea and Baclofen 20mg po prn given for body aches @ 1500. Safety precautions observed. Call light within reach. PASSPORT APPLICATION EXAMINER @ BS.
--- NOTE | 2016-07-23 19:55 | NUR ---
START OF SHIFT Received report from day shift nurse. Pt is lying in bed resting with a 1:[address] for safety due to unsteady gait. She is a 45 yo female admitted to [facility] on 07/22 for ETOH and Opioid dependence. She is A&O x4 and ambulatory. NKA, full code status, and on a regular diet. She has a PMH of kidney failure, gastric bypass, spinal fusion, UTI, anemia, and anxiety. On admission she admitted to drinking vodka 1500mL per day, taking norco 10/325 TID, and belbuca 300mg BID. Pt started a 3 day Ativan taper and Subutex BID today. She has full body tremors, anxiety, chills, flushing, and moist skin. Tapers due tonight. Fall and seizure precautions in place. Bed is down with call light in reach.
[2016-07-23] MEDS: FERROUS SULFATE 325 MG TABEC PO SCH (20:11)
[2016-07-23] MEDS: PAROXETINE HCL 20 MG TABLET PO SCH (20:12)
[2016-07-23] MEDS: BUPRENORPHINE HCL 2 MG TAB.SUBL SL SCH (20:13)
[2016-07-23] MEDS: ASCORBIC ACID 250 MG TABLET PO SCH (20:13)
--- NOTE | 2016-07-23 20:14 | NUR ---
PRN Clonidine administration Pt is noted with full body tremors, moist skin, chills, and anxiety. B/P 159/93. PRN Clonidine administered.
[2016-07-23] MEDS ORDERED: GABAPENTIN NEURONTIN PO SCH (21:00)
--- NOTE | 2016-07-23 21:15 | NUR ---
PRN Clonidine reassessment PRN Clonidine ineffective. Pt continues to have tremors and anxiety. B/P 150/97.
--- NOTE | 2016-07-23 21:20 | NUR ---
PRN Vistaril, Zofran, and Baclofen administration Pt has full body tremors, anxiety, restlessness, back pain, and nausea. B/P 150/97. PRN Vistaril and Zofran administered.
--- NOTE | 2016-07-23 22:20 | NUR ---
PRN Vistaril, Zofran, and Baclofen reassessment PRN Vistaril ineffective. Pt continues to have tremors and anxiety. B/P 156/94 and HR 72. PRN Zofran effective. Nausea is resolved. PRN Baclofen effective. Pt reports relief of back pain.
[2016-07-23] MEDS: diphenhydrAMINE 50 MG CAPSULE PO PRN (23:00)
--- NOTE | 2016-07-23 23:02 | NUR ---
PRN Ativan administration Pt has moderate tremors, anxiety, flushing, and moist skin. B/P 156/94 and HR 72. PRN Ativan administered.
--- NOTE | 2016-07-24 00:02 | NUR ---
PRN Ativan reassessment PRN Ativan somewhat effective. Pt reports feeling somewhat more relaxed. Tremors have decreased but are still present. B/P 159/90 and HR 72.
[2016-07-24 00:15] VITALS: BP 159/90; TEMP 98.2
[2016-07-24] MEDS: diphenhydrAMINE 50 MG CAPSULE PO PRN (00:19)
--- NOTE | 2016-07-24 00:20 | NUR ---
PRN Benadryl administration Pt reports inability to sleep. PRN Benadryl administered.
--- NOTE | 2016-07-24 02:56 | NUR ---
PRN Clonidine and Baclofen Pt woke up and reports back pain 7/10, anxiety, and restlessness. She is observed to have moderate hand tremors and dilated pupils. PRN Clonidine and Baclofen administered.
[2016-07-24 04:00] VITALS: BP 119/76; TEMP 98.4
[2016-07-24] MEDS: BACLOFEN 20 MG TABLET PO PRN ×3 (04:48→20:54)
--- NOTE | 2016-07-24 04:49 | NUR ---
PRN Baclofen administration Pt c/o back and nerve pain 10/12. PRN Baclofen administered.
[2016-07-24] MEDS: PANTOPRAZOLE SODIUM 40 MG TABLET.DR PO SCH (06:44)
--- NOTE | 2016-07-24 07:15 | NUR ---
END OF SHIFT 322 Report provided to day shift nurse. Pt is lying in bed resting. She is a 45 yo female admitted to [facility] on 07/22 for ETOH and Opioid dependence. She is A&O x4 and ambulatory with assistance. She uses a wheelchair around the unit and downstairs. Pt has a 1:[address] for safety due to unsteady gait. NKA, full code status, and on a regular diet. She has a PMH of kidney failure, gastric bypass, spinal fusion, UTI, anemia, and anxiety. On admission she admitted to drinking vodka 1500mL per day, taking norco 10/325 TID, and belbuca 300mg BID. Pt started a 3 day Ativan taper and Subutex BID on 07/23/16. Symptoms she experienced were tremors, diaphoresis, and elevated B/P . PRN Clonidine, Zofran, Vistaril, Baclofen x2, Ativan, and Benadryl administered. Last COWS 4 and CIWA 4. She drank 769mL and slept for 6 hours. Fall and seizure precautions in place. Bed is down with call light in reach.
--- NOTE | 2016-07-24 07:46 | NUR ---
START OF SHIFT NOTE: Received report from awake overnight monitor nurse. 45 yo female admitted 07-04-17 for ETOH and opiate dependence. Pt is on a 3 day Ativan taper and routine Subutex. Tolerating well. Pt is alert and oriented X4. Color pink, skin warm and dry. Respirations even and unlabored. Pt on 1:1 status due to unsteady gait. BHT @ bedside. Safety precautions observed. Call light within reach.
[2016-07-24 08:00] VITALS: BP 143/92; TEMP 98.2
[2016-07-24] MEDS: CLONIDINE HCL 0.1 MG TABLET PO PRN (08:54)
[2016-07-24] MEDS: THIAMINE HCL 100 MG TABLET PO SCH (08:55)
[2016-07-24] MEDS: GABAPENTIN 300 MG CAPSULE PO SCH ×3 (08:55→20:52)
[2016-07-24] MEDS: BUPRENORPHINE HCL 2 MG TAB.SUBL SL SCH ×2 (08:55→20:54)
[2016-07-24] MEDS: MULTIVITAMINS,THERAPEUTIC TABLET PO SCH (08:56)
[2016-07-24] MEDS: FERROUS SULFATE 325 MG TABEC PO SCH ×2 (08:56→20:52)
[2016-07-24] MEDS: ASCORBIC ACID 250 MG TABLET PO SCH ×2 (08:56→20:54)
[2016-07-24] MEDS: CHOLECALCIFEROL 1,000 UNIT TABLET PO SCH (08:56)
[2016-07-24] MEDS: FOLIC ACID 1 MG TABLET PO SCH (08:56)
[2016-07-24] MEDS ORDERED: LORAZEPAM 1 MG TABLET PO SCH (09:00)
--- NOTE | 2016-07-24 09:00 | NUR ---
VSS COWS 12 CIWA 13 c/o muscle aches, sweating, nausea, anxiety Baclofen 20mg po prn and Clonidine 0.1mg po prn administered for withdrawal symptoms.
--- NOTE | 2016-07-24 10:10 | NUR ---
Pt feels improved after Baclofen and Clonidine prn. Muscle aches improved.
[2016-07-24] MEDS ORDERED: LORAZEPAM 1 MG TABLET PO PRN ×2 (11:30)
--- NOTE | 2016-07-24 11:30 | NUR ---
Pt c/o back pain 10/12 Toradol 30mg IM prn administered.
[2016-07-24] MEDS: LIDOCAINE 5% PATCH TD SCH (11:32)
[2016-07-24] MEDS: KETOROLAC TROMETHAMINE 30 MG INJ IM PRN (11:37)
--- NOTE | 2016-07-24 12:30 | NUR ---
Pt states back pain 5/10 after Toradol IM prn
--- NOTE | 2016-07-24 12:44 | NUR ---
Ativan 1mg po prn given for a CIWA 12
[2016-07-24 12:45] VITALS: BP 126/85; TEMP 98.1
--- NOTE | 2016-07-24 13:40 | NUR ---
Repeat CIWA after Ativan 1mg po prn 9
[2016-07-24] MEDS: LORAZEPAM 1 MG TABLET PO SCH ×2 (14:50→20:52)
--- NOTE | 2016-07-24 14:50 | NUR ---
Zofran 4mg sl prn given for nausea.
[2016-07-24] MEDS: ONDANSETRON ODT 4 MG TAB.RAPDIS SL PRN ×2 (14:53→20:53)
--- NOTE | 2016-07-24 15:50 | NUR ---
Pt states nausea improved after Zofran prn
--- NOTE | 2016-07-24 15:55 | NUR ---
Therapist informed client of group times. Client refused to attend group because she is tired.
[2016-07-24 18:04] VITALS: BP 126/85; TEMP 98.1
--- NOTE | 2016-07-24 18:43 | NUR ---
END OF SHIFT NOTE: Report given to manager shift nurse. 45 yo female admitted 5--17 for ETOH and opiate dependence. Pt placed on a 3 day Ativan taper and routine Subutex BID. Pt is alert and oriented X4. Color pink, skin warm and dry. Respirations even and unlabored. Pt on 1:1 status due to unsteady gait. Vital signs have remained stable throughout shift. Last CIWA 11 COWS 9 @ 1500. Baclofen 20mg po prn and Clonidine 0.1mg po prn @ 0900. Toradol 30mg IM prn @ 1130. Ativan 1mg po prn @ 1240. Zofran 4mg sl prn @ 1450. Safety precautions observed. Call light within reach. NATURAL GAS ENGINEER @ BS.
--- NOTE | 2016-07-24 19:45 | NUR ---
START OF SHIFT Received report from day shift nurse. Pt is lying in bed watching TV. She is a 45 yo female admitted to [facility] on 07/22 for ETOH and Opioid dependence. She is A&O x4 and ambulatory. She has a 1:[address] for safety due to unsteady gait r/t tremors. NKA, full code status, and on a regular diet. Pt has a PMH of kidney failure, gastric bypass, spinal fusion, UTI, anemia, and anxiety. On admission she admitted to drinking vodka 1500mL per day, taking norco 10/325 TID, and belbuca 300mg BID. Pt started a 3 day Ativan taper and Subutex BID 07/23. Ativan taper was modified by MD today. She reports chills, nervous system pain, and back pain. She is noted with dilated pupils, mild tremors, and moist skin. Tapers due tonight. Fall and seizure precautions in place. Bed is down with call light in reach.
[2016-07-24 20:00] VITALS: BP 136/89; TEMP 97.6
[2016-07-24] MEDS: PAROXETINE HCL 20 MG TABLET PO SCH (20:53)
[2016-07-24] MEDS: IBUPROFEN 400 MG TABLET PO PRN (20:54)
--- NOTE | 2016-07-24 20:55 | NUR ---
PRN Baclofen, Motrin, and Zofran Pt reports "back and nervous system pain" 09/11, headache, and nausea. PRN Baclofen, Motrin, and Zofran administered.
--- NOTE | 2016-07-24 21:55 | NUR ---
PRN Baclofen, Motrin, and Zofran reassessment PRN Baclofen, Motrin, and Zofran effective. Pt reports relief of back and nervous system pain, headache, and nausea.
[2016-07-25 02:30] VITALS: BP 132/91; TEMP 97.9
[2016-07-25] MEDS: CLONIDINE HCL 0.1 MG TABLET PO PRN (02:46)
[2016-07-25] MEDS: BACLOFEN 20 MG TABLET PO PRN ×4 (02:54→16:35)
--- NOTE | 2016-07-25 03:56 | NUR ---
PRN Clonidine and Baclofen reassessment PRN Clonidine and Baclofen effective. Pt is lying in bed resting with eyes closed. Respirations even and unlabored. 1:[address] for safety.
--- NOTE | 2016-07-25 04:00 | NUR ---
0400 Vitals refused. COWS and CIWA deferred. Pt refused to be woken for 0400 vitals. Respirations even and unlabored. 1:[address] COWS and CIWA ordered Q4HWA.
[2016-07-25] MEDS: PANTOPRAZOLE SODIUM 40 MG TABLET.DR PO SCH (06:59)
--- NOTE | 2016-07-25 07:10 | NUR ---
END OF SHIFT Report provided to day shift nurse. Pt is lying in bed resting. She has a 1:[address] for safety due to unsteady gait r/t tremors. She is a 45 yo female admitted to [facility] on 07/22 for ETOH and Opioid dependence. She is A&O x4 and ambulatory with assistance. She uses a wheelchair as needed for longer distances. NKA, full code status, and on a regular diet. Pt has a PMH of kidney failure, gastric bypass, spinal fusion, UTI, anemia, and anxiety. On admission she admitted to drinking vodka 1500mL per day, taking norco 10/325 TID, and belbuca 300mg BID. Pt started a 3 day Ativan taper and Subutex BID 07/23. Ativan taper was modified on 07/24. Last COWS 9 and CIWA 7. PRN Motrin, Baclofen x2, Zofran, and Clonidine administered. She drank 946mL and slept for 5 hours. Fall and seizure precautions in place. Bed is down with call light in reach.
--- NOTE | 2016-07-25 07:25 | NUR ---
Start of Shift Report from the night nurse: pt is a 45y/o female returned here for Etoh r/t Vodka for 9 days, Opiates r/t [place] 10/325 and Belbuca 300mg PO bid for 9 days; 3 day Ativan taper and Subutex tapers ordered. Pt is a full code, regular diet, NKA, fall and seizure precautions orders with sitter 1:1 ordered for unsteady gait. Hhx: Anxiety, spinal fusion, gastric bypass surgery, kidney Failure, UTI and Anemia. V/S stable. Skin is intact. PRN Motrin, baclofen, Zofran and CLonidine given last night. No new orders, labs or recommendations endorsed to me. Last COWS 9 CIWA 7. Pt is asleep in room. Will cont. to monitor the pt.
[2016-07-25 08:00] VITALS: BP 121/77; TEMP 97.7
[2016-07-25] MEDS ORDERED: LORAZEPAM 1 MG TABLET PO SCH (09:00)
[2016-07-25] MEDS: CHOLECALCIFEROL 1,000 UNIT TABLET PO SCH (10:00)
[2016-07-25] MEDS: FOLIC ACID 1 MG TABLET PO SCH (10:00)
[2016-07-25] MEDS: MULTIVITAMINS,THERAPEUTIC TABLET PO SCH (10:00)
[2016-07-25] MEDS: FERROUS SULFATE 325 MG TABEC PO SCH ×2 (10:00→22:09)
[2016-07-25] MEDS: ASCORBIC ACID 250 MG TABLET PO SCH ×2 (10:00→22:11)
[2016-07-25] MEDS: GABAPENTIN 300 MG CAPSULE PO SCH ×3 (10:00→22:09)
[2016-07-25] MEDS: BUPRENORPHINE HCL 2 MG TAB.SUBL SL SCH ×2 (10:00→22:11)
[2016-07-25] MEDS: LORAZEPAM 1 MG TABLET PO SCH ×3 (10:01→22:09)
[2016-07-25] MEDS: THIAMINE HCL 100 MG TABLET PO SCH (10:01)
[2016-07-25] MEDS: ONDANSETRON ODT 4 MG TAB.RAPDIS SL PRN ×2 (10:06→17:37)
[2016-07-25] MEDS: KETOROLAC TROMETHAMINE 30 MG INJ IM PRN ×2 (10:07→17:37)
[2016-07-25] MEDS: LIDOCAINE 5% PATCH TD SCH (10:07)
--- NOTE | 2016-07-25 10:10 | NUR ---
PRN Medication Administration Pt is in room with sitter for fall precautions r/t unsteady gait, pt c/o mild nausea, back pain 8/10 and muscle tension; PRN Baclofen 20mg, Toradol 30mg IM and Zofran 4mg SL given as ordered. Will reassess in 1H.
--- NOTE | 2016-07-25 11:15 | NUR ---
Reassessment Pt is getting to go out to group therapy and denies pain, nausea & muscle tension; PRN baclofen, Zofran and Toradol are effective. Will cont. to monitor the pt.
[2016-07-25 12:00] VITALS: BP 121/77; TEMP 98.2
[2016-07-25] MEDS ORDERED: MAGNESIUM OXIDE 400 MG TABLET PO ONE (12:30)
[2016-07-25 16:00] VITALS: BP 118/16; TEMP 97.7
--- NOTE | 2016-07-25 16:31 | NUR ---
MD communication Pt stated that she told Dr Kothari "the wrong med" earlier. Pt states that she would like remeron for sleep. Dr Kothari notified, ordered remeron 15mg PO QHS. Orders entered, unable to enter orders.
--- NOTE | 2016-07-25 16:38 | NUR ---
PRN Medication Administration Pt c/o anxiety and muscle tension with discomfort and requested baclofen; PRN baclofen 20mg PO given as ordered. Will reassess in 1H.
[2016-07-25] MEDS: METHOCARBAMOL 750 MG TABLET PO PRN (17:35)
--- NOTE | 2016-07-25 17:45 | NUR ---
Reassessment, PRN Medication Administration, New orders pt c/o of existing muscle tension and spasms with "neuropathic pain" 07/12, mild nausea, and back pain /; Baclofen was not effective so PRN Robaxin 750mg , Zofran 4mg SL and Toradol 30mg IM given as ordered. New Orders: Mag-Ox with Mag 1.6 given as ordered, Remeron tonight HS and 07/26/16 labs Chem 22. Will reassess in 1H.
--- NOTE | 2016-07-25 18:44 | NUR ---
Reassessment Pt is getting ready to go to group and denies nausea, pain decreased to 2/10 and muscle tension relieved; Robaxin, Zofran and Toradol are effective. Will cont. to monitor the pt.
--- NOTE | 2016-07-25 18:58 | NUR ---
End of Shift Report to the night nurse: pt is a 45y/o female returned here for Etoh r/t Vodka for 9 days, Opiates r/t [place] 10/325 and Belbuca 300mg PO bid for 9 days; 3 day Ativan taper and Subutex tapers ordered. Pt is a full code, regular diet, NKA, fall and seizure precautions orders with sitter 1:1 ordered for unsteady gait. Hhx: Anxiety, spinal fusion, gastric bypass surgery, kidney Failure, UTI and Anemia. V/S stable. Skin is intact. PRN Baclofen given twice with last dose at 1635p, Zofran twice with last dose at 1745p and Toradol with las dose at 1745p. New orders labs tomorrow and Remeron tonight. Last COWS 6 CIWA 6.
[2016-07-25 20:00] VITALS: BP 117/81; TEMP 97.7
--- NOTE | 2016-07-25 20:00 | NUR ---
2000 Patient received resting comfortably with eyes closed and respirations regular, unlabored at 16. Patient aroused easily for nurse assess and vital signs. Patient responds to nurse's greeting and introduction with a smile and, " Hi, I'm fine, I guess and how are you?" Patient is oriented to person, place, day, and her personal situation. Easily reoriented to date and time. Patient's lung sounds are clear bilaterally and active bowel sounds are noted X 4 abdominal Quads, per auscultation. Patient states that she has been eating and taking fluids ad jelena with no real gastric issues, and she states also that she did attend PM group tonight and she has been attending as consistently as possible. Vital signs are: 97.7-61-16 117/81, O2 Sat 95%, COWS 2, CIWA 2. Patient denies any pain or other discomforts at this time and she offers no requests for anything. 1 to 1 Tech staff at patient's bedside for patient safety. Patient was admitted on 07/22/16 for Alcohol (Vodka), [place] and Belbuca withdrawal and she is currently on a 3-Day Ativan medication taper and routine Subutex medication, which she has apparently been tolerating well so far. Patient is friendly, cooperative and verbally appropriate when interacting with nurse. [place] snack taken along with Sprite. Patient states that she is going to go downstairs in wheelchair to smoke on patio, accompanied by her 1 to 1 staff for patient safety. Bed is locked and in lowest position, bed rails are up X 2 and call light at patient's hand.
[2016-07-25] MEDS: PAROXETINE HCL 20 MG TABLET PO SCH (22:11)
[2016-07-25] MEDS: MIRTAZAPINE 15 MG TABLET PO SCH (22:11)
[2016-07-26] VITALS: BP 108/73; TEMP 98.1
[2016-07-26 04:00] VITALS: BP 109/77; TEMP 97.9
--- NOTE | 2016-07-26 06:30 | NUR ---
0630 Patient slept a total of 8 hours and she had 1 void and no stools. Total intake was 355 ml p.o. No prn medications given this shift. V/SS afebrile, COWS 2, CIWA 2 at 0400. 1 to 1 staff continues per patient safety. Patient is presently sleeping comfortably with eyes closed and respirations quiet, deep, unlabored at 14.
[2016-07-26] MEDS: PANTOPRAZOLE SODIUM 40 MG TABLET.DR PO SCH (06:58)
--- NOTE | 2016-07-26 07:20 | NUR ---
Start of Shift Report from the night nurse with update: pt is a 45y/o female returned here for Etoh r/t Vodka for 9 days, Opiates r/t [place] 10/325 and Belbuca 300mg PO bid for 9 days; 3 day Ativan taper and Subutex tapers ordered. Pt is a full code, regular diet, NKA, fall and seizure precautions orders with sitter 1:1 ordered for unsteady gait. Hhx: Anxiety, spinal fusion, gastric bypass surgery, kidney Failure, UTI and Anemia. V/S stable. Skin is intact. No PRN's given last night. No new orders, labs or recommendations endorsed. Last COWS 2 CIWA 2. Pt is asleep in room. Will cont. to monitor the pt.
[2016-07-26 08:00] VITALS: BP 131/92; TEMP 98.5
[2016-07-26] MEDS ORDERED: LORAZEPAM 1 MG TABLET PO SCH (09:00)
[2016-07-26] MEDS: CHOLECALCIFEROL 1,000 UNIT TABLET PO SCH (09:30)
[2016-07-26] MEDS: KETOROLAC TROMETHAMINE 30 MG INJ IM PRN (09:30)
[2016-07-26] MEDS: BACLOFEN 20 MG TABLET PO PRN ×2 (09:30→16:25)
[2016-07-26] MEDS: LORAZEPAM 1 MG TABLET PO SCH ×2 (09:30→20:56)
--- NOTE | 2016-07-26 09:30 | NUR ---
PRN Medication Administration Pt is in room resting in bed anxious and c/o muscle spasms & neuropathic pain 10/12; PRN Toradol 30mg IM and Baclofen 20mg PO given as ordered. Will reassess in 1H.
[2016-07-26] MEDS: MULTIVITAMINS,THERAPEUTIC TABLET PO SCH (09:31)
[2016-07-26] MEDS: FOLIC ACID 1 MG TABLET PO SCH (09:31)
[2016-07-26] MEDS: BUPRENORPHINE HCL 2 MG TAB.SUBL SL SCH ×2 (09:31→20:59)
[2016-07-26] MEDS: THIAMINE HCL 100 MG TABLET PO SCH (09:31)
[2016-07-26] MEDS: ASCORBIC ACID 250 MG TABLET PO SCH ×2 (09:31→20:57)
[2016-07-26] MEDS: FERROUS SULFATE 325 MG TABEC PO SCH ×2 (09:31→20:56)
[2016-07-26] MEDS: LIDOCAINE 5% PATCH TD SCH (09:33)
[2016-07-26] MEDS: GABAPENTIN 300 MG CAPSULE PO SCH ×3 (09:33→20:56)
--- NOTE | 2016-07-26 10:30 | NUR ---
Reassessment Pt is getting ready to go to group therapy and states that pain decreased to 3/10 and no spasms present; Baclofen and Toradol are effective. Will cont. to monitor the pt.
[2016-07-26 12:00] VITALS: BP 141/87; TEMP 97.9
[2016-07-26] MEDS: METHOCARBAMOL 750 MG TABLET PO PRN (12:30)
--- NOTE | 2016-07-26 12:30 | NUR ---
PRN Medication Administration Pt c/o recurrent muscle spasms and tension; PRN Robaxin 750mg given as ordered. Will reassess in 1H.
--- NOTE | 2016-07-26 13:30 | NUR ---
Reassessment Pt is in room resting in bed and eating lunch, pt states that the muscle tension is relieved and no spasms at this time; Robaxin is effective. Will cont. to monitor the pt.
[2016-07-26 16:00] VITALS: BP 132/71; TEMP 97.8
--- NOTE | 2016-07-26 16:30 | NUR ---
PRN Medication Administration Pt is in the [address] returning from group and therapy agitated and anxious with the sitter present and c/o muscle tension and neuro pathic discomfort; I offered PRN Vistaril yet the pt refused, PRN Baclofen 20mg given with late Gabapentin scheduled at 1500H. Will reassess in 1H.
[2016-07-26] MEDS ORDERED: NAPROXEN 500 MG TABLET PO PRN (17:15)
[2016-07-26] MEDS ORDERED: METHYL SALICYLATE/MENTHOL CREAM 28 GM TUBE TOP PRN (17:15)
--- NOTE | 2016-07-26 18:52 | NUR ---
End of Shift Report to the night nurse: pt is a 45y/o female returned here for Etoh r/t Vodka for 9 days, Opiates r/t [place] 10/325 and Belbuca 300mg PO bid for 9 days; 3 day Ativan taper and Subutex tapers ordered. Pt is a full code, regular diet, NKA, fall and seizure precautions orders with sitter 1:1 ordered & discussed with Rod Watson my observations of lethargy and fatigue with slow but steady gait, no new order to d/c sitter. HHx: Anxiety, spinal fusion, gastric bypass surgery, kidney Failure, UTI and Anemia. V/S stable. Skin is intact. PRN Toradol at 0930am, Baclofen given twice with last dose at 1630p, & Robaxin at 1230p. No new orders labs to endorse. Last COWS 6 CIWA 7.
--- NOTE | 2016-07-26 19:10 | NUR ---
Start of shift note Received report from day shift nurse. Pt is a 45 yo female, A+Ox4, presenting to [facility] for ETOH/Opiate dependence. Pt has NKA, is full Code status, and on Regular diet. Pt has HX of Anxiety, Spinal fusion, Gastric bypass, Kidney failure, UTI, and Anemia. Pt is on Fall and Seizure precautions. Pt is on modified Ativan and Subutex tapers, tolerated well. No s/s of distress noted at this time. Respirations even and unlabored. Will continue to monitor.
[2016-07-26 20:18] VITALS: BP 146/93; TEMP 97.9
[2016-07-26] MEDS: MIRTAZAPINE 15 MG TABLET PO SCH (20:56)
[2016-07-26] MEDS: PAROXETINE HCL 20 MG TABLET PO SCH (20:59)
[2016-07-27 00:19] VITALS: BP 129/82; TEMP 98.1
[2016-07-27 04:38] VITALS: BP 121/77; TEMP 97.4
[2016-07-27] MEDS: PANTOPRAZOLE SODIUM 40 MG TABLET.DR PO SCH (06:59)
--- NOTE | 2016-07-27 07:00 | NUR ---
End of shift note Pt is a 45 yo female, A+Ox4, presenting to [facility] for ETOH/Opiate dependence. Pt has NKA, is full Code status, and on Regular diet. Pt has HX of Anxiety, Spinal fusion, Gastric bypass, Kidney failure, UTI, and Anemia. Pt is on Fall and Seizure precautions. Pt is on modified Ativan and Subutex tapers, tolerated well. Pt slept for a total of 6 HRS. Last CIWA: 2 @0400. No s/s of distress noted at this time. Respirations even and unlabored. Will endorse to day shift nurse.
--- NOTE | 2016-07-27 07:05 | NUR ---
Start of Shift Endorsement received from nightshift nurse. Pt is a 45 y/o female admitted for alcohol and norco dependence. Pt has been placed on a 3 day Ativan taper and Subutex maintenance. Pt is mildly withdrawing at this time AEB CIWA 2 @ 0400. PT reports sleeping 6 hours. NO PRN medications were administered. VS WNL. Full Code. PT is alert and oriented x4. Pt is in STABLE condition at this time. Remains compliant with medication and diet regimen. All needs have been met, All safety measures in place per hospital policy. Bed in lowest position, side rails up x2, call-light within reach. Will continue to monitor
[2016-07-27 08:00] VITALS: BP 128/68; TEMP 97.9
[2016-07-27] MEDS: FOLIC ACID 1 MG TABLET PO SCH (08:49)
[2016-07-27] MEDS: ASCORBIC ACID 250 MG TABLET PO SCH ×2 (08:49→21:23)
[2016-07-27] MEDS: FERROUS SULFATE 325 MG TABEC PO SCH ×2 (08:49→21:23)
[2016-07-27] MEDS: CHOLECALCIFEROL 1,000 UNIT TABLET PO SCH (08:49)
[2016-07-27] MEDS: BUPRENORPHINE HCL 2 MG TAB.SUBL SL SCH ×2 (08:50→21:23)
[2016-07-27] MEDS: MULTIVITAMINS,THERAPEUTIC TABLET PO SCH (08:50)
[2016-07-27] MEDS: THIAMINE HCL 100 MG TABLET PO SCH (08:50)
[2016-07-27] MEDS: GABAPENTIN 300 MG CAPSULE PO SCH (08:50)
[2016-07-27] MEDS: LIDOCAINE 5% PATCH TD SCH (11:51)
[2016-07-27] MEDS: BACLOFEN 20 MG TABLET PO PRN ×2 (11:57→21:29)
[2016-07-27 12:00] VITALS: BP 143/88; TEMP 98.1
[2016-07-27] MEDS ORDERED: MIRTAZAPINE15 MG PO (12:59)
[2016-07-27] MEDS ORDERED: Paroxetine Hcl PO (12:59)
[2016-07-27] MEDS ORDERED: HYDROXYZINE PAM25 M1 PO (12:59)
[2016-07-27] MEDS ORDERED: Naproxen PO (12:59)
[2016-07-27] MEDS ORDERED: Gabapentin PO (12:59)
[2016-07-27] MEDS ORDERED: CATAPRES0.1 MG PO (12:59)
[2016-07-27] MEDS ORDERED: GABAPENTIN 300 MG CAPSULE PO SCH ×2 (15:00→21:00)
[2016-07-27] MEDS ORDERED: GABAPENTIN 100 MG CAPSULE PO SCH ×2 (15:00→21:00)
[2016-07-27 16:00] VITALS: BP 132/75; TEMP 98.1
--- NOTE | 2016-07-27 18:49 | NUR ---
End of Shift Endorsement given to nightshift nurse. Pt is a 45 y/o female admitted for alcohol and norco dependence. Pt has been placed on a 3 day Ativan taper and Subutex maintenance. Pt is mildly withdrawing at this time AEB CIWA 2 @ 1600. Pt is being discharged on 07/28/16, all documentation has been completed, pt reports readiness for discharge. Pt participated in groups and activities. Intake: 2200ml, Void x4, BM x1. NO PRN medications were administered. VS WNL. Full Code. PT is alert and oriented x4. Pt is in STABLE condition at this time. Remains compliant with medication and diet regimen. All needs have been met, All safety measures in place per hospital policy. Bed in lowest position, side rails up x2, call-light within reach. Will continue to monitor
--- NOTE | 2016-07-27 19:09 | NUR ---
Start of shift note Received report from day shift nurse. Pt is a 45 yo female, A+Ox4, presenting to [facility] for ETOH/Opiate dependence. Pt has NKA, is full Code status, and on Regular diet. Pt has HX of Anxiety, Spinal fusion, Gastric bypass, Kidney failure, UTI, and Anemia. Pt is on Fall and Seizure precautions. Pt has completed modified Ativan and Subutex tapers, tolerated well, and is due for discharge tomorrow. No s/s of distress noted at this time. Respirations even and unlabored. Will continue to monitor.
[2016-07-27 20:16] VITALS: BP 143/88; TEMP 98.1
[2016-07-27] MEDS: MIRTAZAPINE 15 MG TABLET PO SCH (21:23)
[2016-07-27] MEDS: PAROXETINE HCL 20 MG TABLET PO SCH (21:23)
--- NOTE | 2016-07-27 21:29 | NUR ---
PRN Baclofen Pt c/o muscle pain/spasms and requested for PRN Baclofen. Medication given and tolerated well. Wll reassess within 1 HR. Will continue to monitor.
--- NOTE | 2016-07-27 22:25 | NUR ---
PRN Baclofen Reassessment Medication effective. PT reports decrease in muscle pain/spasms. No s/s of ASE/distress noted at this time. Respirations even and unlabored. Will continue to monitor.
[2016-07-28 00:18] VITALS: BP 108/74; TEMP 97.4
[2016-07-28 04:12] VITALS: BP 123/89; TEMP 98.5
[2016-07-28] MEDS: BACLOFEN 20 MG TABLET PO PRN (06:21)
[2016-07-28] MEDS: ONDANSETRON ODT 4 MG TAB.RAPDIS SL PRN (06:21)
[2016-07-28] MEDS: PANTOPRAZOLE SODIUM 40 MG TABLET.DR PO SCH (06:21)
--- NOTE | 2016-07-28 06:22 | NUR ---
PRN Baclofen and Zofran PT c/o muscle pain/spasms and nausea and requested for PRN Baclofen and Zofran. Medications given and tolerated well. Will reassess within 1 HR. Will continue to monitor.
--- NOTE | 2016-07-28 06:53 | NUR ---
PRN Baclofen and Zofran Reassessment Medications effective. No s/s of pain/muscle spasms noted. No s/s of ASE/distress noted at this time. Respirations even and unlabored. Will continue to monitor.
--- NOTE | 2016-07-28 07:41 | NUR ---
Discharge note Pt is in stable condition, V/S WNL, skin intact, denies any suicidal or homicidal ideations, all discharge paper work signed and dated. Pt was discharged from [facility] on 07-28-16 @0740. Pt left the building with all of her medications, belongings, and prescriptions. notified.
== END 2016-07-28 07:40 | DRG 895 ==
LOC: SRC 22:22
PROVIDERS: ADMIT Internal Medicine; ATTEND Internal Medicine
PROC: HZ2ZZZZ Detoxification Services for Substance Abuse Treatment (ICD-10-PCS; principal; 2016-07-22)
PROC: HZ41ZZZ Group Counseling for Substance Abuse Treatment, Behavioral (ICD-10-PCS; 2016-07-25)
DX: F10.230 Alcohol dependence with withdrawal, uncomplicated (principal); F11.20 Opioid dependence, uncomplicated; F33.2 Major depressive disorder, recurrent severe without psychotic features; Y90.9 Presence of alcohol in blood, level not specified; G89.29 Other chronic pain; F41.1 Generalized anxiety disorder; F17.210 Nicotine dependence, cigarettes, uncomplicated; M79.2 Neuralgia and neuritis, unspecified; E83.42 Hypomagnesemia; E87.6 Hypokalemia; E55.9 Vitamin D deficiency, unspecified; D50.9 Iron deficiency anemia, unspecified